=== PATIENT | male | born 1945 | race Hispanic/Latino ===

== ENCOUNTER 2019-08-28 14:06 | Emergency (ER) | payer MEDICARE, BC ==
[~2019-08-28] VITALS: Ht 177.8 cm; Wt 90.7 kg
[2019-08-28] MEDS ORDERED: ASPIRIN 81 MG CHEW TAB PO ONE (15:15)
--- NOTE | 2019-08-28 15:31 | Diagnostic Imaging Report ---
EXAMINATION: Head CT HISTORY: Slurred speech, possible stroke COMPARISON: None. TECHNIQUE: Helical axial images of the head were obtained. Reformatted coronal and sagittal images from the axial data. Dose modulation, iterative reconstruction, and/or weight based adjustment of the mA/kV was utilized to reduce the radiation dose to as low as reasonably achievable. Image quality: Motion/streaking artifact limits the evaluation of the skull base and posterior cranial fossa. FINDINGS: Parenchyma: 1. No abnormal densities. 2. No mass or hemorrhage. No CT evidence of acute territorial vascular insult. Extra-axial spaces:No abnormal density. No extra-axial fluid collections Brain volume: Mild generalized parenchymal volume loss. Ventricles: No hydrocephalus or displacement. Arteries: No density suggestive of thrombus. Dural sinuses: No abnormal density. Foramen magnum: No mass, Chiari malformation, or basilar invagination. Sella: No obvious mass. Paranasal/mastoid sinuses: Imaged portions unremarkable. Skull/Scalp: No lytic or blastic lesions. No fractures. IMPRESSION: No acute intracranial hemorrhage or CT evidence of large acute territorial cortical infarcts. Signed by: Dr. Tata Hills M.D. on 08/28/2019 3:27 PM
--- NOTE | 2019-08-28 15:44 | Diagnostic Imaging Report ---
EXAMINATION: CHEST SINGLE (PORTABLE) INDICATION: ^left facial droop COMPARISON: None FINDINGS: AP view TUBES and LINES: None. LUNGS: Lungs are well inflated. There is no evidence of pneumonia or pulmonary edema. PLEURA: No pleural effusion or pneumothorax. HEART AND MEDIASTINUM: The cardiomediastinal silhouette is unremarkable. BONES AND SOFT TISSUES: No acute osseous lesion. Soft tissues are unremarkable. UPPER ABDOMEN: No free air under the diaphragm. IMPRESSION: No acute thoracic abnormality. Signed by: Dr. Nathen Floyd MD on 08/28/2019 3:40 PM
[2019-08-28 15:56] LABS: BILIRUBIN,URINE NEGATIVE (NEGATIVE); CLARITY,URINE SL CLOUDY (CLEAR); COLOR,URINE YELLOW (YELLOW); KETONES,URINE NEGATIVE (NEGATIVE); LEUKOCYTE ESTERASE ,URINE NEGATIVE (NEGATIVE); NITRITE,URINE NEGATIVE (NEGATIVE); PROTEIN,URINE DIPSTICK NEGATIVE (NEGATIVE); URINE UROBILINOGEN 0.2 mg/dL (0.2 - 1)
[2019-08-28 16:06] LABS: INR 0.89; PROTHROMBIN TIME 12.6 seconds (11.9-14.5)
[2019-08-28 16:07] LABS: PARTIAL THROMBOPLASTIN TIME 28.9 seconds (23.8-35.5)
[2019-08-28 16:11] LABS: BACTERIA,URINE RARE /HPF; BASOPHILS # (AUTO) 0.1 (0.0-0.1); BASOPHILS % 0.6 % (0.0-1.0); EOSINOPHILS # (AUTO) 0.3 (0.0-0.4); EOSINOPHILS % 2.8 % (0.0-6.0); EPITHELIAL CELLS,URINE FEW /LPF; HEMATOCRIT 41.5 % (38.2-49.6); HEMOGLOBIN 14.2 g/dL (14.0-18.0); LYMPHOCYTES % 29.7 % (18.0-39.1); MEAN CORPUSCULAR HEMOGLOBIN 30.7 pg (28-32); MEAN CORPUSCULAR HGB CONC 34.2 g/dL (31-35); MEAN CORPUSCULAR VOLUME 89.8 fL (81-99); MONOCYTES # (AUTO) 0.9 (0.2-0.8); MONOCYTES % 8.7 % (4.4-11.3); NEUTROPHILS # (AUTO) 5.8 (2.1-6.9); NEUTROPHILS % 57.8 % (38.7-80.0); PLATELET COUNT 252 x10e3/uL (140-360); RBC,URINE 0-5 /HPF (0-5); RED BLOOD COUNT 4.62 x10e6/uL (4.3-5.7); RED CELL DISTRIBUTION WIDTH 12.6 % (11.7-14.4)
[2019-08-28 16:15] LABS: ALANINE AMINOTRANSFERASE 34 IU/L (0-55); ALBUMIN 3.7 g/dL (3.5-5.0); ALKALINE PHOSPHATASE 85 IU/L (40-150); ANION GAP 13.3 mmol/L (8-16); BLOOD UREA NITROGEN 24 mg/dL (7-26); BUN/CREATININE RATIO 21 (6-25); CALCIUM 10.3 mg/dL (8.4-10.2); CARBON DIOXIDE 24 mmol/L (22-29); CHLORIDE 103 mmol/L (98-107); CREATINE KINASE 101 IU/L (30-200); CREATININE, SERUM 1.15 mg/dL (0.72-1.25); EST GLOMERULAR FILTRATION RATE > 60 ML/MIN (60-); GLUCOSE 318 mg/dL (74-118); POTASSIUM 3.3 mmol/L (3.5-5.1); SODIUM 137 mmol/L (136-145)
--- NOTE | 2019-08-28 19:12 | Emergency Department Note ---
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, Family Member Arrival Mode: Car Water Meter Installer Required: No Onset (how long ago): hour(s) Radiation: Reports non-radiation Severity: mild Onset quality: sudden Timing of current episode: constant Progression: unchanged Chronicity: new Context: Denies recent illness Relieving factors: none Exacerbating factors: none Associated symptoms: Reports denies other symptoms Treatments prior to arrival: none Past Medical/Family History Physician Review I have reviewed the patient's past medical and family history. Any updates have been documented here. Past Medical History Recent Fever: No Clinical Suspicion of Infectio: No New/Unexplained Change in Ment: No Past Medical History: Hypertension, Diabetes, Hyperlipedemia Other Medical History: dementia Past Surgical History: None Social History Smoking Cessation: Former smoker Counseling Performed: Yes Alcohol Use: None Any Illegal Drug Use: No TB Exposure/Symptoms: No Physically hurt or threatened: No Family History Family history of heart diseas: No Other Any Pre-Existing Lines (PICC,: No Review of Systems Review of Systems Constitutional: Reports no symptoms EENTM: Reports no symptoms Cardiovascular: Reports no symptoms Respiratory: Reports no symptoms Gastrointestinal: Reports no symptoms Genitourinary: Reports no symptoms Musculoskeletal: Reports no symptoms Integumentary: Reports no symptoms Neurological: Reports as per HPI Psychological: Reports no symptoms Endocrine: Reports no symptoms Hematological/Lymphatic: Reports no symptoms Physical Exam Related Data Allergies: Coded Allergies: No Known Allergies (Unverified , 08/28/19) Triage Vital Signs Vital Signs Date Time Temp Pulse Resp B/P (MAP) Pulse Ox O2 Delivery O2 Flow Rate FiO2 08/28/19 15:07 98.8 100 18 136/86 96 Room Air Vital signs reviewed: Yes Physical Exam CONSTITUTIONAL Constitutional: Present well-developed, Present well-nourished HENT HENT: Present normocephalic, Present atraumatic, Present oropharynx clear/moist, Present nose normal HENT L/R: Present left TM normal, Present right TM normal, Present left canal normal, Present right canal normal, Present left ext ear normal, Present right ext ear normal EYES Eyes: Reports PERRL, Reports conjunctivae normal NECK Neck: Present ROM normal PULMONARY Pulmonary: Present effort normal, Present breath sounds normal CARDIOVASCULAR Cardiovascular: Present regular rhythm, Present heart sounds normal, Present capillary refill normal, Present normal rate GASTROINTESTINAL Abdominal: Present soft, Present nontender, Present bowel sounds normal GENITOURINARY Genitourinary: Present exam deferred SKIN Skin: Present warm, Present dry MUSCULOSKELETAL Musculoskeletal: Present ROM normal NEUROLOGICAL Neurological: Present alert, Present cranial nerve deficit (LEFT FACIAL DROOP WITH FOREHEAD INVOLVEMENT); Absent abnormal gait, Absent weakness PSYCHOLOGICAL Psychological: Present mood/affect normal, Present judgement normal Results Laboratory Result Diagram: 08/28/19 1519 08/28/19 1519 Laboratory Laboratory Tests Test 08/28/19 15:19 White Blood Count 10.07 x10e3/uL (4.8-10.8) Red Blood Count 4.62 x10e6/uL (4.3-5.7) Hemoglobin 14.2 g/dL (14.0-18.0) Hematocrit 41.5 % (38.2-49.6) Mean Corpuscular Volume 89.8 fL (81-99) Mean Corpuscular Hemoglobin 30.7 pg (28-32) Mean Corpuscular Hemoglobin Concent 34.2 g/dL (31-35) Red Cell Distribution Width 12.6 % (11.7-14.4) Platelet Count 252 x10e3/uL (140-360) Neutrophils (%) (Auto) 57.8 % (38.7-80.0) Lymphocytes (%) (Auto) 29.7 % (18.0-39.1) Monocytes (%) (Auto) 8.7 % (4.4-11.3) Eosinophils (%) (Auto) 2.8 % (0.0-6.0) Basophils (%) (Auto) 0.6 % (0.0-1.0) Neutrophils # (Auto) 5.8 (2.1-6.9) Lymphocytes # (Auto) 3.0 (1.0-3.2) Monocytes # (Auto) 0.9 (0.2-0.8) Eosinophils # (Auto) 0.3 (0.0-0.4) Basophils # (Auto) 0.1 (0.0-0.1) Absolute Immature Granulocyte (auto 0.04 x10e3/uL (0-0.1) Prothrombin Time 12.6 seconds (11.9-14.5) Prothromb Time International Ratio 0.89 Activated Partial Thromboplast Time 28.9 seconds (23.8-35.5) Urine Color Yellow (YELLOW) Urine Clarity Sl cloudy (CLEAR) Urine pH 5.5 (5 - 7) Urine Specific [place] 1.020 (1.010-1.025) Urine Protein Negative (NEGATIVE) Urine Glucose (UA) 2+ (NEGATIVE) Urine Ketones Negative (NEGATIVE) Urine Blood Trace (NEGATIVE) Urine Nitrite Negative (NEGATIVE) Urine Bilirubin Negative (NEGATIVE) Urine Urobilinogen 0.2 mg/dL (0.2 - 1) Urine Leukocyte Esterase Negative (NEGATIVE) Urine RBC 0-5 /HPF (0-5) Urine WBC None /HPF (0-5) Urine Epithelial Cells Few /LPF (NONE) Urine Bacteria Rare /HPF (NONE) Sodium Level 137 mmol/L (136-145) Potassium Level 3.3 mmol/L (3.5-5.1) Chloride Level 103 mmol/L (98-107) Carbon Dioxide Level 24 mmol/L (22-29) Anion Gap 13.3 mmol/L (8-16) Blood Urea Nitrogen 24 mg/dL (7-26) Creatinine 1.15 mg/dL (0.72-1.25) Estimat Glomerular Filtration Rate > 60 ML/MIN (60-) BUN/Creatinine Ratio 21 (6-25) Glucose Level 318 mg/dL (74-118) Calcium Level 10.3 mg/dL (8.4-10.2) Total Bilirubin 0.7 mg/dL (0.2-1.2) Aspartate Amino Transf (AST/SGOT) 27 IU/L (5-34) Alanine Aminotransferase (ALT/SGPT) 34 IU/L (0-55) Alkaline Phosphatase 85 IU/L (40-150) Creatine Kinase 101 IU/L (30-200) Creatine Kinase MB 1.80 ng/mL (0-5.0) Troponin I 0.012 ng/mL (0-0.300) Total Protein 7.4 g/dL (6.5-8.1) Albumin 3.7 g/dL (3.5-5.0) Globulin 3.7 g/dL (2.3-3.5) Albumin/Globulin Ratio 1.0 (0.8-2.0) Lab results reviewed: Yes Imaging Imaging results reviewed: Yes Impressions EXAMINATION: CHEST SINGLE (PORTABLE) INDICATION: ^left facial droop COMPARISON: None FINDINGS: AP view TUBES and LINES: None. LUNGS: Lungs are well inflated. There is no evidence of pneumonia or pulmonary edema. PLEURA: No pleural effusion or pneumothorax. HEART AND MEDIASTINUM: The cardiomediastinal silhouette is unremarkable. BONES AND SOFT TISSUES: No acute osseous lesion. Soft tissues are unremarkable. UPPER ABDOMEN: No free air under the diaphragm. IMPRESSION: No acute thoracic abnormality. Signed by: Dr. Nathen Floyd MD on 08/28/2019 3:40 PM EXAMINATION: Head CT HISTORY: Slurred speech, possible stroke COMPARISON: None. TECHNIQUE: Helical axial images of the head were obtained. Reformatted coronal and sagittal images from the axial data. Dose modulation, iterative reconstruction, and/or weight based adjustment of the mA/kV was utilized to reduce the radiation dose to as low as reasonably achievable. Image quality: Motion/streaking artifact limits the evaluation of the skull base and posterior cranial fossa. FINDINGS: Parenchyma: 1. No abnormal densities. 2. No mass or hemorrhage. No CT evidence of acute territorial vascular insult. Extra-axial spaces:No abnormal density. No extra-axial fluid collections Brain volume: Mild generalized parenchymal volume loss. Ventricles: No hydrocephalus or displacement. Arteries: No density suggestive of thrombus. Dural sinuses: No abnormal density. Foramen magnum: No mass, Chiari malformation, or basilar invagination. Sella: No obvious mass. Paranasal/mastoid sinuses: Imaged portions unremarkable. Skull/Scalp: No lytic or blastic lesions. No fractures. IMPRESSION: No acute intracranial hemorrhage or CT evidence of large acute territorial cortical infarcts. Signed by: Dr. Tata Hills M.D. on 08/28/2019 3:27 PM Procedures 12 Lead ECG Interpretation ECG Interpretation : ECG: ECG 1 Water Meter Installer: Interpreted by ED physician Date: Aug 28, 2019 Time: 15:09 Rhythm: sinus rhythm Conduction: incomplete RBBB (AND LAFB) ST segments normal: Yes T waves normal: Yes Clinical Impression: abnormal ECG Additional Comments PROLONGED QT Assessment & Plan Medical Decision Making MDM CBC, CHEM, CARDIACS, ECG, UA, CT BRAIN - LOOKS LIKE CASTAÑEDA'S PALSY BUT R/O CEREBRAL BLEED, MASS, CVA, ELECTROLYTE ABNL, STEMI/NSTEMI, UTI, RENAL INSUFF Reassessment Reassessment RE-EVALUATION - STILL ONLY HAS LEFT FACIAL DROOP AFFECTING FOREHEAD ALSO DC WITH STEROIDS, [place], F/U PCP/NEURO Assessment & Plan Final Impression: (1) Castañeda's palsy Depart Disposition: HOME, SELF-CARE Last Vital Signs Date Time Temp Pulse Resp B/P (MAP) Pulse Ox O2 Delivery O2 Flow Rate FiO2 08/28/19 15:07 98.8 100 18 136/86 96 Room Air Medications in the ED Aspirin 81 mg NOW ONCE PO Last administered on 08/28/19at 15:56; Admin Dose 81 MG; Start 08/28/19 at 15:15; Stop 08/28/19 at 15:22; Status DC ROCHELLE ADHIKARI MD Aug 28, 2019 19:12
== END 2019-08-28 20:30 | disposition home or self-care (01) ==
LOC: ER 14:06
DX: G51.0 Bell's palsy (principal); F03.90 Unspecified dementia, unspecified severity, without behavioral disturbance, psychotic disturbance, mood disturbance, and anxiety; I10 Essential (primary) hypertension; E11.9 Type 2 diabetes mellitus without complications; E78.5 Hyperlipidemia, unspecified
CPT/HCPCS: 36415; 70450; 71045; 80053; 81001; 82550; 82553; 84484; 85025; 85610; 85730; 87086; 93005; 99284

== ENCOUNTER 2019-09-14 11:58 | Emergency (ER) | payer MEDICARE, BC ==
[~2019-09-14] VITALS: Ht 177.8 cm; Wt 90.7 kg
[2019-09-14] MEDS ORDERED: SODIUM CHLORIDE 0.9% 1000ML 1,000 ML IV STA ×2 (12:23→15:00)
[2019-09-14 12:44] LABS: BASOPHILS % 0.2 % (0.0-1.0); EOSINOPHILS % 0.1 % (0.0-6.0); HEMATOCRIT 38.3 % (38.2-49.6); HEMOGLOBIN 13.7 g/dL (14.0-18.0); LYMPHOCYTES # (AUTO) 1.2 (1.0-3.2); LYMPHOCYTES % 6.9 % (18.0-39.1); MEAN CORPUSCULAR HEMOGLOBIN 30.6 pg (28-32); MEAN CORPUSCULAR HGB CONC 35.8 g/dL (31-35); MEAN CORPUSCULAR VOLUME 85.7 fL (81-99); MONOCYTES # (AUTO) 1.2 (0.2-0.8); MONOCYTES % 6.9 % (4.4-11.3); NEUTROPHILS # (AUTO) 14.4 (2.1-6.9); NEUTROPHILS % 85.3 % (38.7-80.0); PLATELET COUNT 300 x10e3/uL (140-360); RED BLOOD COUNT 4.47 x10e6/uL (4.3-5.7); RED CELL DISTRIBUTION WIDTH 12.4 % (11.7-14.4)
[2019-09-14 12:47] LABS: CLARITY,URINE CLEAR (CLEAR); COLOR,URINE YELLOW (YELLOW); LEUKOCYTE ESTERASE ,URINE NEGATIVE (NEGATIVE); NITRITE,URINE NEGATIVE (NEGATIVE)
[2019-09-14 12:48] LABS: BILIRUBIN,URINE NEGATIVE (NEGATIVE); KETONES,URINE 1+ (NEGATIVE); PROTEIN,URINE DIPSTICK NEGATIVE (NEGATIVE); URINE UROBILINOGEN 0.2 mg/dL (0.2 - 1)
[2019-09-14 12:49] LABS: INR 0.92; PROTHROMBIN TIME 12.8 seconds (11.9-14.5)
[2019-09-14 12:50] LABS: PARTIAL THROMBOPLASTIN TIME 32.6 seconds (23.8-35.5)
[2019-09-14 12:59] LABS: ALANINE AMINOTRANSFERASE 15 IU/L (0-55); ALBUMIN/GLOBULIN RATIO 0.8 (0.8-2.0); ALKALINE PHOSPHATASE 70 IU/L (40-150); ANION GAP 18.8 mmol/L (8-16); BLOOD UREA NITROGEN 25 mg/dL (7-26); BUN/CREATININE RATIO 21 (6-25); CALCIUM 9.7 mg/dL (8.4-10.2); CARBON DIOXIDE 21 mmol/L (22-29); CHLORIDE 86 mmol/L (98-107); CREATINE KINASE 124 IU/L (30-200); CREATININE, SERUM 1.18 mg/dL (0.72-1.25); EST GLOMERULAR FILTRATION RATE > 60 ML/MIN (60-); GLUCOSE 291 mg/dL (74-118); POTASSIUM 4.8 mmol/L (3.5-5.1); SODIUM 121 mmol/L (136-145)
[2019-09-14 13:08] LABS: BACTERIA,URINE FEW /HPF; EPITHELIAL CELLS,URINE FEW /LPF; WBC,URINE (MAN) 0-5 /HPF (0-5)
--- NOTE | 2019-09-14 14:32 | NUR ---
DR. TAFOYA CALLED AND POSTED THE READ ON THE HEAD CT
--- NOTE | 2019-09-14 14:37 | Diagnostic Imaging Report ---
CT BRAIN WO HISTORY: Altered mental status COMPARISON: Head CT 08/28/2019 Technique: Noncontrast axial scans were obtained from skull base to the vertex. Coronal and sagittal reconstructions obtained from the axial data. One or more of the following dose reduction techniques were used: Automated exposure control, adjustment of the mA and/or kV according to patient size, and/or utilization of iterative reconstruction technique. DISCUSSION: Scalp/Skull: Unremarkable. Brain sulci: Mildly prominent. Ventricles: Compensatory dilatation. Extra-axial spaces: New bilateral hemispheric fluid density subdural hygromas measure up to 0.6 cm in thickness on the right and 0.9 cm in thickness on the left. Mass effect is local without significant brain herniation. Trace acute subdural hemorrhage is also seen along the right posterior tentorium without significant mass effect. No other extra-axial masses or fluid collections. Carotid siphon calcifications are present. Parenchyma: Mild bilateral deep white matter hypodensity is likely chronic microvascular ischemic change. Otherwise, no masses, hemorrhage, or large vascular territory acute infarct. Dural sinuses: No abnormal densities. Sellar/Suprasellar region: Intact. Skull base: Intact. Incidental findings: Mild scattered paranasal sinus mucosal thickening. IMPRESSION: 1. Trace acute subdural hematoma along the right posterior tentorium without significant mass effect. This finding was discussed with Nelly Hancock RN, at 2:32 PM on 09/14/2019 (by Dr. Smart). 2. New bilateral hemispheric subdural hygromas, measuring up to 0.6 cm in thickness on the right and 0.9 cm on the left. Mass effect is local without significant brain herniation. 3. No other acute intracranial abnormalities. No other significant changes were compared to head CT dated 08/28/2019. 4. Mild supratentorial chronic microvascular ischemic change. Mild generalized cerebral volume loss. Signed by: Dr. Sarbjit Smart M.D. on 09/14/2019 2:34 PM
--- NOTE | 2019-09-14 14:45 | Diagnostic Imaging Report ---
CT CERVICAL SPINE WO HISTORY: Trauma COMPARISON: Concurrent head CT TECHNIQUE: CT of the cervical spine without contrast. Sagittal and coronal reformations were created. One or more of the following dose reduction techniques were used: Automated exposure control, adjustment of the mA and/or kV according to patient size, and/or utilization of iterative reconstruction technique. FINDINGS: Cervical lordosis is preserved. There is mild cervical levoscoliosis. No fractures, compression deformity, or destructive osseous lesions are seen. The craniocervical junction is intact. No gross spinal canal masses are seen. The paravertebral and paraspinal soft tissues are unremarkable. Degenerative changes: Mild multilevel spondylosis is associated with multilevel bilateral prominent facet arthrosis. There is associated minimal grade 1 anterolisthesis of C4 on C5. No gross osseous canal stenosis is seen. Multilevel moderate to severe bilateral foraminal stenoses are due to uncovertebral and facet arthrosis. Additional findings: Mild bilateral carotid bulb calcified plaque is present. IMPRESSION: 1. No acute osseous abnormalities. 2. Degenerative changes as described above. Signed by: Dr. Sarbjit Smart M.D. on 09/14/2019 2:42 PM
[2019-09-14] MEDS ORDERED: FOSPHENYTOIN 50 MG/ML VIAL IV STA (14:57)
[2019-09-14] MEDS ORDERED: CEFTRIAXONE SOD 1 GM/NS 50 ML 50 ML IV ONE (15:00)
--- NOTE | 2019-09-14 15:17 | Emergency Department Note ---
History of Present Illnes History of Present Illness Chief Complaint: General Medicine Complaints History of Present Illness This is a 73 year old male sent via EMS by family for AMS. They reported he had a fall 2 days ago and he was taken to [facility], unknown studies done but was sent home. Since then pt has been generally weak, not getting out of bed even to restroom, and no po intake. 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, Family Member Arrival Mode: Car Energy Control Officer Required: No Onset (how long ago): day(s) (2) Severity: moderate Onset quality: gradual Timing of current episode: constant Progression: worsening Chronicity: new Context: Reports trauma/injury Relieving factors: none Exacerbating factors: none Associated symptoms: Reports confusion, Reports loss of appetite Treatments prior to arrival: none Past Medical/Family History Physician Review I have reviewed the patient's past medical and family history. Any updates have been documented here. Past Medical History Recent Fever: No Clinical Suspicion of Infectio: Yes New/Unexplained Change in Ment: Yes Past Medical History: Hypertension, Diabetes, Hyperlipedemia Other Medical History: dementia Past Surgical History: None Social History Smoking Cessation: Never Smoker Counseling Performed: No Alcohol Use: None Any Illegal Drug Use: No Physically hurt or threatened: No Family History Family history of heart diseas: No Other Any Pre-Existing Lines (PICC,: No Review of Systems Review of Systems Constitutional: Reports no symptoms EENTM: Reports no symptoms Cardiovascular: Reports no symptoms Respiratory: Reports no symptoms Gastrointestinal: Reports no symptoms Genitourinary: Reports no symptoms Musculoskeletal: Reports no symptoms Integumentary: Reports no symptoms Neurological: Reports as per HPI Psychological: Reports no symptoms Endocrine: Reports no symptoms Hematological/Lymphatic: Reports no symptoms Physical Exam Related Data Allergies: Coded Allergies: No Known Allergies (Unverified , 08/28/19) Triage Vital Signs Vital Signs Date Time Temp Pulse Resp B/P (MAP) Pulse Ox O2 Delivery O2 Flow Rate FiO2 09/14/19 12:06 09/14/19 12:29 97.9 121 27 98 Room Air Vital signs reviewed: Yes Physical Exam CONSTITUTIONAL Constitutional: Present well-developed, Present well-nourished, Present ill appearing HENT HENT: Present normocephalic, Present atraumatic HENT L/R: Present left ext ear normal, Present right ext ear normal EYES Eyes: Reports other (pinpoint pupils bilateral) NECK Neck: Present ROM normal, Present supple PULMONARY Pulmonary: Present effort normal, Present other (decr BS's throughout ) CARDIOVASCULAR Cardiovascular: Present regular rhythm, Present tachycardia GASTROINTESTINAL Abdominal: Present soft, Present nontender GENITOURINARY Genitourinary: Present other (stage 2 sacral decubitus) SKIN Skin: Present warm MUSCULOSKELETAL Musculoskeletal: Present other (appears tender with ROM of both hips but no tenderness at hips) NEUROLOGICAL Neurological: Present other (somnolent but arousable to voice, oriented to name only) PSYCHOLOGICAL Results Laboratory Result Diagram: 09/14/19 1215 09/14/19 1215 Laboratory Laboratory Tests Test 09/14/19 12:30 09/14/19 12:25 09/14/19 12:15 09/14/19 12:11 Ammonia 46 UG/DL (31-123) White Blood Count 16.87 x10e3/uL (4.8-10.8) Red Blood Count 4.47 x10e6/uL (4.3-5.7) Hemoglobin 13.7 g/dL (14.0-18.0) Hematocrit 38.3 % (38.2-49.6) Mean Corpuscular Volume 85.7 fL (81-99) Mean Corpuscular Hemoglobin 30.6 pg (28-32) Mean Corpuscular Hemoglobin Concent 35.8 g/dL (31-35) Red Cell Distribution Width 12.4 % (11.7-14.4) Platelet Count 300 x10e3/uL (140-360) Neutrophils (%) (Auto) 85.3 % (38.7-80.0) Lymphocytes (%) (Auto) 6.9 % (18.0-39.1) Monocytes (%) (Auto) 6.9 % (4.4-11.3) Eosinophils (%) (Auto) 0.1 % (0.0-6.0) Basophils (%) (Auto) 0.2 % (0.0-1.0) Neutrophils # (Auto) 14.4 (2.1-6.9) Lymphocytes # (Auto) 1.2 (1.0-3.2) Monocytes # (Auto) 1.2 (0.2-0.8) Eosinophils # (Auto) 0.0 (0.0-0.4) Basophils # (Auto) 0.0 (0.0-0.1) Absolute Immature Granulocyte (auto 0.10 x10e3/uL (0-0.1) Prothrombin Time 12.8 seconds (11.9-14.5) Prothromb Time International Ratio 0.92 Activated Partial Thromboplast Time 32.6 seconds (23.8-35.5) Sodium Level 121 mmol/L (136-145) Potassium Level 4.8 mmol/L (3.5-5.1) Chloride Level 86 mmol/L (98-107) Carbon Dioxide Level 21 mmol/L (22-29) Anion Gap 18.8 mmol/L (8-16) Blood Urea Nitrogen 25 mg/dL (7-26) Creatinine 1.18 mg/dL (0.72-1.25) Estimat Glomerular Filtration Rate > 60 ML/MIN (60-) BUN/Creatinine Ratio 21 (6-25) Glucose Level 291 mg/dL (74-118) Lactic Acid Level 1.4 mmol/L (0.5-2.0) Calcium Level 9.7 mg/dL (8.4-10.2) Total Bilirubin 1.0 mg/dL (0.2-1.2) Aspartate Amino Transf (AST/SGOT) 21 IU/L (5-34) Alanine Aminotransferase (ALT/SGPT) 15 IU/L (0-55) Alkaline Phosphatase 70 IU/L (40-150) Creatine Kinase 124 IU/L (30-200) Creatine Kinase MB 2.10 ng/mL (0-5.0) Troponin I 0.010 ng/mL (0-0.300) B-Type Natriuretic Peptide 13.0 pg/mL (0-100) Total Protein 6.8 g/dL (6.5-8.1) Albumin 3.0 g/dL (3.5-5.0) Globulin 3.8 g/dL (2.3-3.5) Albumin/Globulin Ratio 0.8 (0.8-2.0) Urine Color Yellow (YELLOW) Urine Clarity Clear (CLEAR) Urine pH 6 (5 - 7) Urine Specific [place] 1.020 (1.010-1.025) Urine Protein Negative (NEGATIVE) Urine Glucose (UA) 2+ (NEGATIVE) Urine Ketones 1+ (NEGATIVE) Urine Blood Trace (NEGATIVE) Urine Nitrite Negative (NEGATIVE) Urine Bilirubin Negative (NEGATIVE) Urine Urobilinogen 0.2 mg/dL (0.2 - 1) Urine Leukocyte Esterase Negative (NEGATIVE) Urine RBC 6-10 /HPF (0-5) Urine WBC 0-5 /HPF (0-5) Urine Epithelial Cells Few /LPF (NONE) Urine Bacteria Few /HPF (NONE) Lab results reviewed: Yes Imaging Imaging results reviewed: Yes Impressions CT BRAIN WO HISTORY: Altered mental status COMPARISON: Head CT 08/28/2019 Technique: Noncontrast axial scans were obtained from skull base to the vertex. Coronal and sagittal reconstructions obtained from the axial data. One or more of the following dose reduction techniques were used: Automated exposure control, adjustment of the mA and/or kV according to patient size, and/or utilization of iterative reconstruction technique. DISCUSSION: Scalp/Skull: Unremarkable. Brain sulci: Mildly prominent. Ventricles: Compensatory dilatation. Extra-axial spaces: New bilateral hemispheric fluid density subdural hygromas measure up to 0.6 cm in thickness on the right and 0.9 cm in thickness on the left. Mass effect is local without significant brain herniation. Trace acute subdural hemorrhage is also seen along the right posterior tentorium without significant mass effect. No other extra-axial masses or fluid collections. Carotid siphon calcifications are present. Parenchyma: Mild bilateral deep white matter hypodensity is likely chronic microvascular ischemic change. Otherwise, no masses, hemorrhage, or large vascular territory acute infarct. Dural sinuses: No abnormal densities. Sellar/Suprasellar region: Intact. Skull base: Intact. Incidental findings: Mild scattered paranasal sinus mucosal thickening. IMPRESSION: 1. Trace acute subdural hematoma along the right posterior tentorium without significant mass effect. This finding was discussed with Nelly Hancock RN, at 2:32 PM on 09/14/2019 (by Dr. Smart). 2. New bilateral hemispheric subdural hygromas, measuring up to 0.6 cm in thickness on the right and 0.9 cm on the left. Mass effect is local without significant brain herniation. 3. No other acute intracranial abnormalities. No other significant changes were compared to head CT dated 08/28/2019. 4. Mild supratentorial chronic microvascular ischemic change. Mild generalized cerebral volume loss. Signed by: Dr. Sarbjit Smart M.D. on 09/14/2019 2:34 PM Procedures 12 Lead ECG Interpretation ECG Interpretation : ECG: ECG 1 Energy Control Officer: Interpreted by ED physician Date: Sep 14, 2019 Time: 12:03 Rhythm: sinus tachycardia Rate: tachycardia (125) QRS axis: left ST segments normal: Yes T waves normal: Yes Clinical Impression: abnormal ECG Critical Care Time Total Critical Care Time (min): 35 Critical care time exclusive o: separately billable procedures Critcal care necessary due to: trauma, other (AMS, SDH) Critcal care time spent by me: discussion w consultants, evaluation patient response to tx, examination of patient, obtaining hx from patient/surrogate, order/review laboratory studies, order/review radiographic studies, re- evaluation of patient condition, review of old charts Assessment & Plan Medical Decision Making MDM recent fall 2 days ago now AMS, GCS 13 - check CBC, CHEM, CARDIACS, PANCX'S, UA/CX, NH3, TRAUMA CT (HEAD, C-SPINE, CHEST/ABD/PELVIS) - R/O CEREBRAL BLEED, CERV FX, CHEST TRAUMA, PELVIC FX, ELECTROLYTE ABNL Reassessment Reassessment CT WITH SUBDURAL HEMATOME AND NEW BILAT SUBDURAL HYGROMAS - TRANSFER INITIATED TO TRAUMA CENTER [facility] SPOKE WITH DR THORNTON WHO ACCEPTED PT Assessment & Plan Final Impression: (1) SDH (subdural hematoma) (2) Altered mental status (3) Dehydration (4) Hyponatremia Depart Disposition: TRANS TO OTHER [facility] Last Vital Signs Date Time Temp Pulse Resp B/P (MAP) Pulse Ox O2 Delivery O2 Flow Rate FiO2 09/14/19 14:04 117 24 130/74 97 Room Air 09/14/19 12:29 97.9 Medications in the ED Sodium Chloride 1,000 ml @ 0 mls/hr Q0M STAT IV Last administered on 09/14/19at 12:32; Admin Dose 999 MLS/HR; Start 09/14/19 at 12:23; Stop 09/14/19 at 12:28; Status DC Ceftriaxone Sodium 50 ml @ 100 mls/hr ONCE ONCE IV ; Start 09/14/19 at 15:00; Stop 09/14/19 at 15:29; Status UNV Fosphenytoin Sodium 1,000 mg NOW STAT IV ; Start 09/14/19 at 14:57; Stop 09/14/19 at 14:58; Status UNV Sodium Chloride 1,000 ml @ 0 mls/hr Q0M STAT IV ; Start 09/14/19 at 15:00; Stop 09/14/19 at 15:01; Status UNV ROCHELLE ADHIKARI MD Sep 14, 2019 15:17
[2019-09-14] MEDS ORDERED: FOSPHENYTOIN 1,000 MG in SODIUM CHLORIDE 0.9% 50ML 50 ML IV ONE (15:30)
--- NOTE | 2019-09-14 15:46 | NUR ---
pt to be transferred to [facility] per md for subdural hematoma; pt has hx of dementia (a & o x 1)and more altered than usual per family and unable to consent to transfer himself; lance chen called for approval witnessed by both britton rn and compa rn at 1543 states she is ok with transfer to [facility]; md notified
--- NOTE | 2019-09-14 15:56 | Diagnostic Imaging Report ---
TECHNIQUE: CT of the chest, abdomen and pelvis without intravenous contrast. INDICATION: Fall, altered mental status. COMPARISON: Chest radiograph 08-28-2019. TECHNIQUE: Chest, Abdomen and pelvis were scanned utilizing a multidetector helical scanner from the thoracic inlet to the pubic symphysis without administration of IV or oral contrast. Coronal and sagittal reformations were obtained. Routine protocol was performed. Lack of intravenous contrast limits sensitivity for evaluation of vascular or visceral structures. COMPLICATIONS: None RADIATION DOSE: Total DLP: 840.3 mGy*cm Dose modulation, iterative reconstruction, and/or weight based adjustment of the mA/kV was utilized to reduce the radiation dose to as low as reasonably achievable. FINDINGS: Exam is somewhat limited by streak artifact from arms. LINES AND TUBES: None LUNGS AND AIRWAYS: The central airways are patent. Scattered bilateral pulmonary nodules, for example a 4 mm right upper lobe nodule on series 3, image 10, 3 mm right middle lobe nodule on image 27, 3 mm right lower lobe nodule on image 26, and 2 mm left lower lobe nodule on image 30. PLEURA: The pleural spaces are clear. HEART AND MEDIASTINUM: The thyroid gland is normal. No significant mediastinal, hilar or axillary lymphadenopathy is seen. No cardiomegaly or pericardial effusion. Multivessel coronary atherosclerosis. HEPATOBILIARY: There is a 2.2 cm hypodense lesion in the right hepatic lobe, with limited evaluation secondary to streak artifact, but likely representing a cyst. No biliary ductal dilatation. SPLEEN: No splenomegaly. PANCREAS: No focal masses or ductal dilatation. ADRENALS: No adrenal nodules. KIDNEYS/URETERS: No hydronephrosis, stones, or solid mass lesions. Nonspecific mild bilateral perinephric stranding. PELVIC ORGANS/BLADDER: Unremarkable. PERITONEUM / RETROPERITONEUM: No free air or fluid. LYMPH NODES: No lymphadenopathy. VESSELS: Mild atherosclerotic calcifications in the abdominal aorta and branch vessels. GI TRACT: No distention or wall thickening. Small hiatal hernia. Mild wall thickening within the esophagus diffusely. Moderate amount of stool in the colon. Retained contrast within the colon. Sigmoid colonic diverticulosis without evidence of diverticulitis. BONES AND SOFT TISSUES: No evidence of acute fracture or malalignment. There is a permeative appearance of the right humeral diaphysis, with limited evaluation secondary to streak artifact. Mild subcutaneous edema/trace hemorrhagic products in the right anterior abdominal wall. Small bilateral fat-containing inguinal hernias. IMPRESSION: Mild subcutaneous edema/trace hemorrhagic products in the right anterior abdominal wall. No other evidence for acute traumatic abnormality in the chest, abdomen, or pelvis. Permeative appearance of the right humerus, which may be artifactual, or represent malignancy or infectious process. Recommend follow-up right humeral radiographs, which may be performed non-emergently, for further evaluation. Bilateral pulmonary nodules, measuring up to 4 mm. In a low risk patient, no further follow-up is required. If the patient has a clinical risk factor for malignancy, an optional follow-up chest CT may be considered in 12 months. Small hiatal hernia with mild diffuse esophageal wall thickening, which may represent esophagitis in the setting of GERD. Recommend clinical correlation. Signed by: Dr. Jose Alfredo Acuna MD on 09/14/2019 3:53 PM
--- NOTE | 2019-09-14 16:21 | NUR ---
REPORT CALLED TO TRICIA SHARP RN FOR THIS PATIENT TO BE TX TO [facility]
--- NOTE | 2019-09-14 17:01 | NUR ---
[facility] HERE TO TX PT. CALL THE FAMILY [facility]- [phone]
== END 2019-09-14 17:10 | disposition short-term general hospital (02) ==
LOC: ER 12:41
DX: S06.5X0A Traumatic subdural hemorrhage without loss of consciousness, initial encounter (principal); I10 Essential (primary) hypertension; E11.9 Type 2 diabetes mellitus without complications; E78.5 Hyperlipidemia, unspecified; F03.90 Unspecified dementia, unspecified severity, without behavioral disturbance, psychotic disturbance, mood disturbance, and anxiety; W19.XXXA Unspecified fall, initial encounter; R40.2412 Glasgow coma scale score 13-15, at arrival to emergency department; E87.1 Hypo-osmolality and hyponatremia; E86.0 Dehydration; Z11.59 Encounter for screening for other viral diseases
CPT/HCPCS: 36415; 51700; 70450; 71250; 72125; 74176; 80053; 81001; 82140; 82550; 82553; 83605; 83880; 84484; 85025; 85610; 85730; 87040; 87086; 93005; 99284; J0696; J7030; Q2009; U0002

== ENCOUNTER 2019-10-21 14:48 | Emergency (ER) | payer MEDICARE, BC, OTHER ==
[~2019-10-21] VITALS: Ht 177.8 cm; Wt 90.7 kg
[2019-10-21 15:25] LABS: BASOPHILS # (AUTO) 0.1 (0.0-0.1); BASOPHILS % 0.3 % (0.0-1.0); EOSINOPHILS % 0.2 % (0.0-6.0); HEMOGLOBIN 12.9 g/dL (14.0-18.0); LYMPHOCYTES % 5.8 % (18.0-39.1); MEAN CORPUSCULAR HEMOGLOBIN 30.6 pg (28-32); MEAN CORPUSCULAR HGB CONC 33.1 g/dL (31-35); MEAN CORPUSCULAR VOLUME 92.6 fL (81-99); MONOCYTES # (AUTO) 1.3 (0.2-0.8); MONOCYTES % 7.3 % (4.4-11.3); NEUTROPHILS % 85.4 % (38.7-80.0); PLATELET COUNT 275 x10e3/uL (140-360); RED BLOOD COUNT 4.21 x10e6/uL (4.3-5.7); RED CELL DISTRIBUTION WIDTH 13.9 % (11.7-14.4)
[2019-10-21 15:35] LABS: PARTIAL THROMBOPLASTIN TIME 43.9 seconds (23.8-35.5)
[2019-10-21 15:40] LABS: INR 1.03
[2019-10-21 15:43] LABS: AMORPHOUS SEDIMENT,URINE MODERATE (FEW); BACTERIA,URINE FEW /HPF; BILIRUBIN,URINE NEGATIVE (NEGATIVE); CLARITY,URINE SL CLOUDY (CLEAR); COLOR,URINE YELLOW (YELLOW); KETONES,URINE 2+ (NEGATIVE); LEUKOCYTE ESTERASE ,URINE NEGATIVE (NEGATIVE); NITRITE,URINE NEGATIVE (NEGATIVE); PROTEIN,URINE DIPSTICK NEGATIVE (NEGATIVE); RBC,URINE 0-5 /HPF (0-5); URINE UROBILINOGEN 0.2 mg/dL (0.2 - 1)
--- OUTSIDE RECORDS SUMMARY | 2019-10-21 15:44 | XMS REPORT | Continuity of Care Document ---
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 Name Role Phone [employer] Unavailable Un available Problems Problem Status Onset Date Classification Date Reported Comments Source SUBDURAL HEMATOMA Active 09/14/2019 [facility] BILATERAL CHRONIC INTRACRANIAL SUBDURAL Active 09/14/2019 [facility] BILATERAL CHRONIC INTRACRANIAL Active 09/14/2019 [facility] SDH Active 0 09/14/2019 [facility] EPISTAXIS Active 08/13/2011 [facility] Contusion - lesion (morphologic abnormality) Active Problem 07/27/2014 [facility] Edema (morphologic abnormality) Active Problem 08/2014 [facility] [place] Bruising Active Problem 08/21/2011 [facility] Diabetes mellitus Active Problem 08/21/2011 [facility] Discomfort Active Problem 08/21/2011 [facility] Edema Active Problem 08/21/2011 [facility] HTN - Hypertension Active Problem 08/21/2011 [facility] Minor surgery done Active Problem 08/21/2011 [facility] Nose bleed Active Problem 08/21/2011 [facility] Pain Active Problem 08/21/2011 [facility] Weakness Active Problem 08/21/2011 [facility] Traumatic subdural hemorrhage without lo ss of consciousness, initial encounter 10/10/2019 [facility] Chronic intracranial subdural hematoma (disorder) Active Problem 10/10/2019 [facility] Diabetes mellitus (disorder) A ctive Problem [facility], [facility], [facility] [place] Discomfort (finding) Active Problem 10/10/2019 [facility], [facility], [facility] [place] 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 Problem 10/10/2019 [facility] Hypertensive disorder, systemic arterial (disorder) Active Problem 10/10/2019 [facility], [facility], [facility] [place] Minor surgery done (finding) A ctive Problem [facility], [facility], [facility] [place] Epistaxis (disorder) Active Problem 10/10/2019 [facility], [facility], [facility] [place] Pain (finding) Active Problem 10/10/2019 [facility], [facility], [facility] [place] Asthenia (finding) Active Problem 10/10/2019 [facility], [facility], [facility] [place] EPISTAXIS Active [facility] NONTRAUMATIC CHRONIC SUBDURAL HEMORRHAGE Active [facility] TRAUM SUBDR HEM W/O LOSS OF CONSCIOUSNES Active [facility] Medications Medication Details Route Status Patient Instructions Ordering Provider Order Date Source melatonin 3 mg oral tablet 6 m g = 2 tab, PO, Bedtime, # 60 tab, 0 Refill(s), Pharmacy: [facility] [place] [address], 170.18, cm, 09/19/19 13:07:00 CDT, Height, 83.636, kg, 09/19/19 13:07:00 CDT, Weight Active 10/07/2019 [facility] metoprolol tartrate 25 mg oral tablet 25 mg = 1 tab, PO, BID, # 60 tab, 2 Refill(s), Pharmacy: [place] [address], 170.18, cm, 09/19/19 13:07:00 CDT, Height, 83.636, kg, 09/19/19 13:07:00 CDT, Weight Active 10/07/2019 [facility] sennosides, PENITENTIARY 8.6 MG Oral Tablet 17.2 mg = 2 tab, PO, Daily, # 60 tab, 2 Refill(s), Pharmacy: [place] [address], 170.18, cm, 09/19/19 13:07:00 CDT, Height, 83.636, kg, 09/19/19 13:07:00 CDT, Weight Active 10/07/2019 [facility] Docusate Sodium 100 MG Oral Capsule 100 mg = 1 cap, PO, BID, # 60 cap, 2 Refill(s), Pharmacy: [place] [address], 170.18, cm, 09/19/19 13:07:00 CDT, Height, 83.636, kg, 09/19/19 13:07:00 CDT, Weight Active 10/07/2019 [facility] Diclofenac Sodium 0.01 MG/MG Topical Gel [Voltaren] 2 gm, TOP, QID, Apply to neck and upper shoulders., # 100 gm, 2 Refill(s), Pharmacy: [facility] [place] [address], 170.18, cm, 09/19/19 13:07:00 CDT, Height, 83.636, kg, 09/19/19 13:07:00 CDT, Weight Active 10/07/2019 [facility] Metformin hydrochloride 1000 MG Oral Tablet 1,000 mg = 1 tab, PO, BID-Meals, # 60 tab, 2 Refill(s), Pharmacy: [place] [address], 170.18, cm, 09/19/19 13:07:00 CDT, Height, 83.636, kg, 09/19/19 13:07:00 CDT, Weight Active 10/07/2019 [facility] methylphenidate 10 mg oral tablet 10 mg = 1 tab, PO, BID-08-31, # 60 tab, 0 Refill(s), Pharmacy: [place] [address], 170.18, cm, 09/19/19 13:07:00 CDT, Height, 83.636, kg, 09/19/19 13:07:00 CDT, Weight Active 10/07/2019 [facility] Mirtazapine 15 MG Oral Tablet 7.5 mg = 0.5 tab, PO, Bedtime, # 15 tab, 2 Refill(s), Pharmacy: [place] [address], 170.18, cm, 09/19/19 13:07:00 CDT, Height, 83.636, kg, 09/19/19 13:07:00 CDT, Weight Active 10/07/2019 [facility] POLYETHYLENE GLYCOL 3350 142 MG/ML Oral Solution 17 gm, PO, Daily, # 527 gm, 2 Refill(s), Pharmacy: [place] [address], 170.18, cm, 09/19/19 13:07:00 CDT, Height, 83.636, kg, 09/19/19 13:07:00 CDT, Weight Active 10/07/2019 [facility] 3 ML Insulin Glargine 100 UNT/ML Prefill ed Syringe [Lantus] 18 unit, SUB-Q, Bedtime, # 2 ea, 2 Refil l(s), Pharmacy: [place] [address], Dispense 2 flex pens and appropriate needles., 170.18, cm, 09/19/19 13:07:00 CDT, Height, 83.636, kg, 09/19/19 13:07:00 CDT, Weight Active 10/07/2019 [facility] Insulin Pen [place] Misc/Other See Instructions, Dispense 1 needle daily for Lantus Solostar pen., # 30 pen needle, 0 Refill(s), Pharmacy: [place] [address], 170.18, cm, 09/19/19 13:07:00 CDT, Height, 83.636, kg, 09/19/19 13:07:00 CDT, Weight Active 10/07/2019 [facility] lisinopril 2.5 mg oral tablet 2.5 mg = 1 tab, PO, Bedtime, # 30 tab, 2 Refill(s), Pharmacy: [place] [address], 170.18, cm, 09/19/19 13:07:00 CDT, Height, 83.636, kg, 09/19/19 13:07:00 CDT, Weight Active 10/07/2019 [facility] sitaGLIPtin 50 mg oral tablet 50 mg = 1 tab, PO, Daily, # 30 tab, 2 Refill(s), Pharmacy: [place] [address], 170.18, cm, 09/19/19 13:07:00 CDT, Height, 83.636, kg, 09/19/19 13:07:00 CDT, Weight Active 10/07/2019 [facility] metoprolol tartrate Notes: (Sa me as: Lopressor) No Longer Active 10/07/2019 [facility] Januvia Notes: Same as Januvia No Longer Active 10/06/2019 [facility] metoprolol tartrate Notes: (Sa me as: Lopressor) No Longer Active 10/04/2019 [facility] Lisinopril Notes: (Same as: Pr inivil, Zestril) No Longer Active 10/04/2019 [facility] Fleet Enema 12 years, Pediatr ic Dosing, 0 Inactive 10/03/2019 [facility] Insulin Glargine 100 UNT/ML Injectable Solution Notes: Same as Lantus Solostar PEN Do not hold insulin without contacting prescriber "single patient use only" WASTE: F/P - Black; E - Municipal Trash Bin Stable for 28 days at room temperature. Expires in days from Date Do not refrigerate No Longer Active 10/03/2019 [facility] modafinil Notes: (Same as:Prov igil) No Longer Active 10/02/2019 [facility] gabapentin 100 MG Oral Capsule 2 cap, Route: PO, Bedtime, Dosing Weight 83.636, kg, Start date: 10/01/19 21:00:00 CDT, Duration: 30 day, Stop date: 10/30/19 21:00:00 CDT No Longer Active 10/02/2019 [facility] Insulin Glargine 100 UNT/ML Injectable Solution 15 unit, 0.15 mL, Route: SUB-Q, Drug form: INJ, Bedtime, Dosing Weight 91.1, kg, Start date: 10/01/19 21:00:00 CDT, Duration: 30 day, Stop date: 10/30/19 21:00:00 CDT, 0 No Longer Active 10/02/2019 [facility] Miralax Notes: Dissolve in 8 o z of water or juice. (Same as: Miralax) No Longer Active 10/01/2019 [facility] gabapentin 300 MG Oral Capsule Notes: (Same as: Neurontin) No Longer Active 10/01/2019 [facility] Januvia Notes: Same as Januvia No Longer Active 09/30/2019 [facility] Insulin Glargine 100 UNT/ML Injectable Solution Notes: Same as Lantus Solostar PEN Do not hold insulin without contacting prescriber "single patient use only" WASTE: F/P - Black; E - Municipal Trash Bin Stable for 28 days at room temperature. Expires in days from Date Do not refrigerate No Longer Active 09/30/2019 [facility] Insulin Glargine 100 UNT/ML Injectable Solution Notes: Same as Lantus Solostar PEN Do not hold insulin without contacting prescriber "single patient use only" WASTE: F/P - Black; E - Municipal Trash Bin Stable for 28 days at room temperature. Expires in days from Date Do not refrigerate No Longer Active 09/28/2019 [facility] Metformin hydrochloride 1000 MG Oral Tablet Notes: (Same as: Glucophage) Take with meal No Longer Active 09/27/2019 [facility] Diclofenac Sodium 0.01 MG/MG Topical Gel [Voltaren] Notes: Same as: Voltaren Gel N o Longer Active 09/27/2019 [facility] Ritalin Notes: (Same as :Rital in) No Longer Active 09/27/2019 [facility] Mirtazapine Notes: (Same as:Re quinton) No Longer Active 09/27/2019 [facility] Artificial Tears Notes: (Same as: Refresh Plus) No Longer Active 09/26/2019 [facility] potassium chloride 20 mEq oral tablet, e xtended release (KCL) 40 mEq, 2 tab, Route: PO, Drug form: ERT AB, Daily, Dosing Weight 83.636, kg, Start date: 09/26/19 8:30:00 CDT, Duration: 3 day, Stop date: 09/28/19 8:30:00 CDT No Longer Active 09/26/2019 [facility] Metformin hydrochloride 500 MG Oral Tablet Notes: (Same as: Glucophage) Take with meal No Longer Active 09/26/2019 [facility] Mag-Ox 400 Notes: (Same as: Ma g-Ox 400) Magnesium oxide [id number] elemental magnesium Dose=____mg magnesium oxide (___mg elemental magnesium) No Longer Active 09/26/2019 [facility] Ritalin Notes: (Same as:Ritali n) No Longer Active 09/25/2019 [facility] Potassium Chloride 1.33 MEQ/ML Oral Solution Notes: (Same as: Potassium Chloride) Inactive 09/25/2019 [facility] Lidocaine 0.05 MG/MG Transdermal Patch Notes: Apply only once for up to 12 hours in a 24-hour period (12 hours on and 12 hours off). (Same as: Lidoderm) "Remove old patch before application of new patch" No Longer Active 09/24/2019 [facility] Mineral Oil Enema Notes: (Same as:Mineral Oil, Light) Inactive 09/23/2019 [facility] Enema 12 years, Pediatr ic Dosing Inactive 09/23/2019 [facility] Insulin Lispro Notes: (Same as : Humalog) Roll in palms of hands gently; Do not shake vigorously. WASTE: F/P - Black; E - Municipal Trash Bin Stable for 28 days at room temperature. Expires in days from Date No Longer Active 09/23/2019 [facility] metoprolol tartrate Notes: (Sa me as: Lopressor) No Longer Active 09/23/2019 [facility] Insulin Glargine 100 UNT/ML Injectable Solution Notes: Same as Lantus Solostar PEN Do not hold insulin without contacting prescriber "single patient use only" WASTE: F/P - Black; E - Municipal Trash Bin Stable for 28 days at room temperature. Expires in days from Date Do not refrigerate No Longer Active 09/21/2019 [facility] quetiapine Notes: (Same as: SE ROquel) No Longer Active 09/21/2019 [facility] metoprolol tartrate Notes: ( me as: Lopressor) No Longer Active 09/21/2019 [facility] sennosides, PENITENTIARY Notes: (Same a s: Senokot) No Longer Active 09/20/2019 [facility] Insulin Glargine 100 UNT/ML Injectable Solution Notes: Same as Lantus Solostar PEN Do not hold insulin without contacting prescriber "single patient use only" WASTE: F/P - Black; E - Municipal Trash Bin Stable for 28 days at room temperature. Expires in days from Date Do not refrigerate Inactive 09/20/2019 [facility] Ketoconazole 20 MG/ML Topical Cream 1 appl, Route: TOP, BID, Drug form: CRM, Start date: 09/19/19 21:00:00 CDT, Duration: 30 day, Stop date: 10/19/19 8:30:00 CDT Inactive 09/20/2019 [facility] Melatonin Notes: (Same as: Elvie atonin) No Longer Active 09/20/2019 [facility] metoprolol tartrate Notes: ( me as: Lopressor) No Longer Active 09/20/2019 [facility] Docusate Notes: (Same as: Cola ce) (Do Not Crush) No Longer Active 09/20/2019 [facility] Lisinopril Notes: (Same as: Pr inivil, Zestril) No Longer Active 09/20/2019 [facility] quetiapine Notes: (Same as: ROquel) No Longer Active 09/20/2019 [facility] Tylenol Notes: Do not exceed 4 gm/day. (Same as: Tylenol) No Longer Active 09/20/2019 [facility] Ergocalciferol 20740 UNT Oral Capsule Notes: (Same as: Vitamin D) "Do Not Crush" No Longer Active 09/19/2019 [facility] Insulin Lispro Notes: (Same as : Humalog) Roll in palms of hands gently; Do not shake vigorously. WASTE: F/P - Black; E - Municipal Trash Bin Stable for 28 days at room temperature. Expires in days from Date No Longer Active 09/19/2019 [facility] heparin Notes: porcine heparin No Longer Active 09/19/2019 [facility] quetiapine Notes: (Same as: ROquel) No Longer Active 09/19/2019 [facility] tizanidine 4 mg, Route: PO, Dr ug form: TAB, TID, Dosing Weight 91.1, kg, Start date: 09/19/19 13:17:00 CDT, Duration: 30 day, Stop date: 10/19/19 13:00:00 CDT Inactiv e 09/19/2019 [facility] Milk of Magnesia Notes: (Same as: Milk of Magnesia, MOM) No Longer Active 09/19/2019 [facility] Bisacodyl Notes: (Same As: Dul colax, Bisco-Lax) No Longer Active 09/19/2019 [facility] Saline Flush 0.9% Notes: (Same as: BD Posiflush) No Longer Active 09/19/2019 [facility] Insulin Lispro Notes: (Same as : Humalog) Roll in palms of hands gently; Do not shake vigorously. WASTE: F/P - Black; E - Municipal Trash Bin Stable for 28 days at room temperature. Expires in days from Date No Longer Active 09/19/2019 [facility] Dextrose 50% Syringe (D50W) 12 .5 gm, 25 mL, Route: IVP, Drug Form: INJ, Dosing Weight 83.636, kg, PRN, PRN Blood Glucose Results, Start date: 09/19/19 13:14:00 CDT, Duration: 30 day, Stop date: 10/19/19 13:13:00 CDT, 0 No Longer Active 09/19/2019 [facility] Glucagon 1 mg, Route: IM, Drug form: PDR/INJ, PRN, Dosing Weight 83.636, kg, PRN Blood Glucose Results, Start date: 09/19/19 13:14:00 CDT, Duration: 30 day, Stop date: 10/19/19 13:13:00 CDT, 0 No Longer Active 09/19/2019 [facility] Midazolam Notes: (Same as:Vers ed) No Longer Active 09/19/2019 [facility] Levetiracetam Notes: Same as K eppra Mix with 100 mL NS, LR or D5W MEDICATION WASTE Product Size: 500 mg Product Wasted: ___ mg No Longer Active 09/19/2019 [facility] NS (Bolus) IV 1,000 mL, 500 ml /hr, Infuse Over: 2 hr, Route: IV, 1,000, Drug form: INJ, ONCE, Priority: STAT, Dosing Weight 91.1 kg, Start date: 09/15/19 21:34:00 CDT, Stop date: 09/15/19 21:34:00 CDT, 0 Inactive 09/16/2019 [facility] Serogiselal Notes: (Same as: CARLINE chavira) Active 09/16/2019 [facility] Melatonin Notes: (Same as: Elvie ramirez) Active 09/16/2019 [facility] Zosyn Notes: (Same as: Zosyn) Dosing based on Piperacillin component MEDICATION WASTE Product Size: 3375 mg Product Wasted: ___ mg Active 09/16/2019 [facility] Sodium Chloride 0.9% (titrate) 1,000 mL 1,000 mL, Rate: 100 ml/hr, Infuse over: 10 hr, Dosing Weight 91.1, kg, Route: IV, Total Volume: 1,000, Start Date: 09/15/19 18:02:00 CDT, Duration: 30 day, Stop date: 10/15/19 18:01:00 CDT, Replace Every: 10 hr, 0 Active 09/15/2019 [facility] nter Seroquel Notes: (Same as: SERO quel) Active 09/15/2019 [facility] Hydralazine Notes: (Same as: A presoline) Push over 5 minutes Active 09/15/2019 [facility] Labetalol 10 mg, 2 mL, Route: IVP, Drug form: INJ, Q1H, Dosing Weight 90.909, kg, PRN Hypertension, Start date: 09/15/19 12:19:00 CDT, Duration: 30 day, Stop date: 10/15/19 12:18:00 CDT, 0 Active 09/15/2019 [facility] Zofran 4 mg, Route: IVP, Drug form: INJ, Q8H, Dosing Weight 90.909, kg, PRN Nausea, Start date: 09/15/19 12:19:00 CDT, Duration: 30 day, Stop date: 10/15/19 12:18:00 CDT Inactive 09/15/2019 [facility] Tylenol Notes: Do not exceed 4 gm/day. (Same as: Tylenol) Active 09/15/2019 [facility] Potassium Chloride 20 mEq, Rou te: IVPB, PRN, Dosing Weight 90.909, kg, PRN Abnormal Lab Result, Via central line, Start date: 09/15/19 12:17:00 CDT, Duration: 30 day, Stop date: 10/15/19 12:16:00 CDT, FOR ICU USE ONLY Inactive 09/15/2019 [facility] sodium phosphate 15 mmol, Rout e: IVPB, PRN, Dosing Weight 90.909, kg, PRN Abnormal Lab Result, Start date: 09/15/19 12:17:00 CDT, Duration: 30 day, Stop date: 10/15/19 12:16:00 CDT, FOR ICU USE ONLY Inactive 09/15/2019 [facility] potassium phosphate 15 mmol, R oute: IVPB, PRN, Dosing Weight 90.909, kg, PRN Abnormal Lab Result, Start date: 09/15/19 12:17:00 CDT, Duration: 30 day, Stop date: 10/15/19 12:16:00 CDT, FOR ICU USE ONLY Inactive 09/15/2019 [facility] potassium phosphate-sodium phosphate 250 mg-280 mg-160 mg oral powder for reconstitution 2 pkt, Route: PO, Dosing Weight 90.909, kg, PRN, PRN Abnormal Lab Result, FOR ICU USE ONLY, Start date: 09/15/19 12:17:00 CDT, Duration: 30 day, Stop date: 10/15/19 12:16:00 CDT Inactive 09/15/2019 [facility] Magnesium Sulfate 2 gm, Route: IVPB, PRN, Dosing Weight 90.909, kg, PRN Abnormal Lab Result, Start date: 09/15/19 12:17:00 CDT, Duration: 30 day, Stop date: 10/15/19 12:16:00 CDT, FOR ICU USE ONLY Inactive 09/15/2019 [facility] Magnesium Oxide 800 mg, Route: PO, PRN, Dosing Weight 90.909, kg, PRN Abnormal Lab Result, FOR ICU USE ONLY, Start date: 09/15/19 12:17:00 CDT, Duration: 30 day, Stop date: 10/15/19 12:16:00 CDT Inactive 09/15/2019 [facility] Calcium Gluconate 1 gm, Route: IVPB, PRN, Dosing Weight 90.909, kg, PRN Abnormal Lab Result, Start date: 09/15/19 12:17:00 CDT, Duration: 30 day, Stop date: 10/15/19 12:16:00 CDT, FOR ICU USE ONLY Inactive 09/15/2019 [facility] Calcium Carbonate 500 MG Chewable Tablet 500 mg, Route: PO, PRN, Dosing Weight 90.909, kg, PRN Abnormal Lab Result, FOR ICU USE ONLY, Start date: 09/15/19 12:17:00 CDT, Duration: 30 day, Stop date: 10/15/19 12:16:00 CDT Inactive 09/15/2019 [facility] Dextrose 50% Syringe (D50W) 25 mL, Route: IVP, Dosing Weight 90.909, kg, PRN, PRN Blood Glucose Results, Start date: 09/15/19 12:16:00 CDT, Duration: 30 day, Stop date: 10/15/19 12:15:00 CDT Inactive 09/15/2019 [facility] Glucagon 1 mg, Route: IM, PRN, Dosing Weight 90.909, kg, PRN Blood Glucose Results, Start date: 09/15/19 12:16:00 CDT, Duration: 30 day, Stop date: 10/15/19 12:15:00 CDT Inactive 09/15/2019 [facility] nter Insulin regular 2 unit, Route: SUB-Q, Sliding Scale, Dosing Weight 90.909, kg, PRN Blood Glucose Results, Start date: 09/15/19 12:16:00 CDT, Duration: 30 day, Stop date: 10/15/19 12:15:00 CDT Inactive 09/15/2019 [facility] Levetiracetam Notes: (Same as: Keppra) No Longer Active 09/15/2019 [facility] Docusate Notes: (Same as: Cola ce) (Do Not Crush) Active 09/15/2019 [facility] sennosides, PENITENTIARY Notes: (Same a s: Senokot) Active 09/15/2019 [facility] Saline Flush 0.9% Notes: (Same as: BD Posiflush) Active 09/15/2019 [facility] Nystatin 100 UNT/MG Topical Powder Notes: (Same as:Mycostatin, Nilstat) For external use only. Active 09/15/2019 [facility] nter Acetaminophen Notes: Do not ex ceed 4 gm/day. (Same as: Tylenol) No Longer Active 09/15/2019 [facility] Ondansetron Notes: (Same as: Jacobo andre) MEDICATION WASTE Product Size: 4 mg Product Wasted: 0 mg Active 09/15/2019 [facility] nter Bisacodyl Notes: (Same As: Dul colax, Bisco-Lax) Active 09/15/2019 [facility] Saline Flush 0.9% Notes: (Same as: BD Posiflush) Active 09/15/2019 [facility] Potassium Chloride Notes: (Bradley e as: KCL) Infuse no faster than 10 mEq/hr if given peripherally. Active 09/15/2019 [facility] nter sodium phosphate Notes: Infuse over 4 hour. Do not infuse phosphorous concurrently in the same line as TPN or IVF that contains calcium. For double lumen central lines, phosphorous may be infused in a separate lumen from TPN. Activ e 09/15/2019 [facility] potassium phosphate Notes: (Sa me as: K Phosphate.) Do not infuse phosphorous concurrently in the same line as TPN or IVF that contains calcium. For double lumen central lines, phosphorous may be infused in a separate lumen from TPN. 1 mMol phoshate has 1.47 mEq potassium Infuse over 4 hours Active 09/15/2019 [facility] potassium phosphate-sodium phosphate 250 mg-280 mg-160 mg oral powder for reconstitution Notes: (Same as: Phos-NaK) Each 1.5 gm pkt has 250mg phosphorous. Mix w/2.5oz water and stir. Active 09/15/2019 [facility] Magnesium Sulfate Notes: WASTE : F/P - Sink; E - Municipal Trash Bin Active 09/15/2019 [facility] Magnesium Oxide Notes: (Same a s: Mag-Ox 400) Magnesium oxide [id number] elemental magnesium Dose=____mg magnesium oxide (___mg elemental magnesium) Active 09/15/2019 [facility] Calcium Gluconate Notes: WASTE : F/P - Sink; E - Municipal Trash Bin Active 09/15/2019 [facility] Calcium Carbonate 500 MG Chewable Tablet Notes: (Same As: Tums) Calcium Carbonate 500 mg = 200 mg elemental calcium Dose = mg calcium carbonate ( mg elemental calcium) Active 09/15/2019 [facility] nter Dextrose 50% Syringe (D50W) 12 .5 gm, 25 mL, Route: IVP, Drug Form: INJ, Dosing Weight 90.909, kg, PRN, PRN Blood Glucose Results, Start date: 09/14/19 20:29:00 CDT, Duration: 30 day, Stop date: 10/14/19 20:28:00 CDT, 0 Active 09/15/2019 [facility] Glucagon 1 mg, Route: IM, Drug form: PDR/INJ, PRN, Dosing Weight 90.909, kg, PRN Blood Glucose Results, Start date: 09/14/19 20:29:00 CDT, Duration: 30 day, Stop date: 10/14/19 20:28:00 CDT, 0 Active 09/15/2019 [facility] Insulin Lispro Notes: (Same as : Humalog) Roll in palms of hands gently; Do not shake vigorously. WASTE: F/P - Black; E - Municipal Trash Bin Stable for 28 days at room temperature. Expires in days from Date Active 09/15/2019 [facility] Acetaminophen Notes: Do not ex ceed 4 gm/day. (Same as: Tylenol) No Longer Active 09/15/2019 [facility] Acetaminophen 325 MG / Hydrocodone Brian trate 5 MG Oral Tablet Notes: (Same as: [place] 325/5) Do not ex ceed 4gm/day of acetaminophen. Inactive 09/15/2019 [facility] Ondansetron Notes: (Same as: Jacobo andre) MEDICATION WASTE Product Size: 4 mg Product Wasted: ___ mg Active 09/15/2019 [facility] Saline Flush 0.9% Notes: (Same as: BD Posiflush) Active 09/15/2019 [facility] Saline Flush 0.9% Notes: (Same as: BD Posiflush) Active 09/14/2019 [facility] Isolyte S PH-7.4 (Bolus) IV No diallo: (Same as: Isolyte S PH7.4, Normosol-R PH 7.4, Plasma-Lyte A ) Inactive 09/14/2019 [facility] nter cefepime Notes: (Same as: Brijesh calero) MEDICATION WASTE Product Size: 2000 mg Product Wasted: ___ mg Inactive 09/14/2019 [facility] Vancomycin 2001 mg: infuse ov er 2.5 hours Inactive 09/14/2019 [facility] Lactated Ringers Injection IV 1,000 mL 1,000 mL, Rate: 25 ml/hr, Infuse over: 40 hr, Route: IV, Dosing Weight 97.727 kg, Total Volume: 1,000, Start date: 08/17/11 14:13:00, Duration: 30 day, Stop date: 09/16/11 14:12:00 IV No Longer Active [place] 08/17/2011 [facility] Sodium Chloride 0.9% IV IV, 10 0 ml/hr, ONCALL, Start date: 08/16/11 16:00:00, Duration: 30, 1,000 ml IV No Longer Active [place] 08/16/2011 [facility] Patient's own med: [facility] menthol oral lozenge Patient's own med: [facility] menthol oral lozenge, 1, Drug form: MISC, Route: PO, 5X Day, 08/15/11 6:00:00, Duration: 30 day, Stop date: 09/13/11 22:00:00 PO No Longer Active [place] 08/15/2011 [facility] Menthol oral lozenge Route: PO, 5X Day, Start date: 08/15/11 6:00:00, Duration: 30 day, Stop date: 09/13/11 22:00:00 PO No Longer Active [place] 2011 [facility] morphine Sulfate 4 mg, 2 mL, R oute: IVP, Drug form: INJ, Q4H, PRN Pain, Start date: 08/15/11 1:54:00, Duration: 30 day, Stop date: 09/14/11 1:53:00 IVP No Longer Active [place] 08/15/2011 [facility] phenol topical 1.4% spray 2 sp ray, Route: PO, Q4H, Drug form: SPRY PRN Sore Throat, Start date: 08/14/11 18:21:00, Duration: 30 day, Stop date: 09/13/11 18:20:00 PO No Longer Active [place] 08/14/2011 [facility] Ancef 1 gm, Route: IVPB, ONCE, Start date: 08/14/11 11:22:00, Duration: 1 doses or times, Stop date: 08/14/11 11:22:00 IVPB No Longer Active [place] 2011 [facility] lisinopril 10 mg, 1 tab, Route : PO, Drug form: TAB, Daily, Start date: 08/14/11 9:00:00, Duration: 30 day, Stop date: 09/12/11 9:00:00 PO No Longer Active [place] 08/14/2011 [facility] Lopressor 5 mg, 5 mL, Route: I [employer], Drug form: INJ, Q6H, PRN Elevated BP, Start date: 08/14/11 7:52:00, Duration: 30 day, Stop date: 09/13/11 7:51:00, Systolic BP >140 Diastolic BP>100 Hold for HR < 60 IVP No Longer Active [facility] 2011 [facility] Afrin 0.05% nasal spray 2 spra y, Route: NASAL, Q12H, Drug form: SPRY, PRN Nasal Congestion, Start date: 08/14/11 4:08:00, Duration: 3 day, Stop date: 08/17/11 4:07:00 NASAL No Longer Active [facility] 08/14/2011 [facility] normal saline 0.9% IV 1,000 mL 1,000 mL, Rate: 90 ml/hr, Infuse over: 11.1 hr, Route: IV, Dosing Weight 97.727 kg, Total Volume: 1,000, Start date: 08/13/11 20:13:00, Duration: 30 day, Stop date: 09/12/11 20:12:00 IV No Longer Active [facility] NovoLog FlexPen 1 unit, 0.01 m L, Route: SUB-Q, Drug form: SOLN, Bedtime, PRN Blood Glucose Results, Start date: 08/13/11 19:57:00, Duration: 30 day, Stop date: 09/12/11 19:56:00 SUB-Q No Longer Active [facility] 08/14/2011 [facility] Dextrose 50% in Water IV 50 mL , Route: IVP, Start date: 08/13/11 19:57:00, Duration: 30 day, Stop date: 09/12/11 19:56:00, PRN Blood Glucose Results IVP No Longer Active [facility] 08/14/2011 [facility] glucagon 1 mg, Route: IM, Drug form: PDR/INJ, PRN, PRN Blood Glucose Results, Start date: 08/13/11 19:57:00, Duration: 30 day, Stop date: 09/12/11 19:56:00 IM No Longer Active [facility] 08/14/2011 [facility] Lopressor 5 mg, 5 mL, Route: I V, Drug form: INJ, ONCE, Start date: 08/13/11 18:45:00, Stop date: 08/13/11 18:45:00 IV No Longer Active [facility] 08/13/2011 [facility] glyBURIDE-metformin 5 mg-500 mg oral tablet 1 tab, Route: PO, Drug Form: TAB, BID-Meals, Start date: 08/13/11 17:00:00, Duration: 30 day, Stop date: 09/12/11 8:00:00 PO No Longer Active [facility] 08/13/2011 [facility] Glucophage 500 mg, 1 tab, Rout e: PO, Drug form: TAB, BID-Meals, Start date: 08/13/11 17:00:00, Duration: 30 day, Stop date: 09/12/11 8:00:00 PO No Longer Active [facility] 08/13/2011 [facility] DiaBeta 5 mg, 1 tab, Route: PO , Drug form: TAB, BID- Meals, Start date: 08/13/11 17:00:00, Duration: 30 day, Stop date: 09/12/11 8:00:00 PO No Longer Active [facility] 08/13/2011 [facility] glucagon 1 mg, Route: IM, Drug form: PDR/INJ, PRN, PRN Blood Glucose Results, Start date: 08/13/11 15:05:00, Duration: 30 day, Stop date: 09/12/11 15:04:00 IM No Longer Active [facility] 08/13/2011 [facility] Dextrose 50% Syringe 25 gm, 50 mL, Route: IVP, Drug Form: INJ, PRN, PRN Blood Glucose Results, Start date: 08/13/11 15:05:00, Duration: 30 day, Stop date: 09/12/11 15:04:00 IVP No Longer Active [facility] 08/13/2011 [facility] acetaminophen-hydrocodone 325 mg-5 mg oral tablet 2 tab, Route: PO, Drug Form: TAB, Q4H, PRN Pain Score 4-6, Start date: 08/13/11 14:28:00, Duration: 30 day, Stop date: 09/12/11 14:27:00 PO No Longer Active [facility] 08/13/2011 [facility] hydromorphone 0.5 mg, 0.5 mL, Route: IVP, Drug form: SOLN, Q5Min, PRN Pain Score 4-6, Start date: 08/13/11 14:28:00, Duration: 5 doses or times, Stop date: Limited # of times IVP No Longer Active [facility] 08/13/2011 [facility] ondansetron 4 mg, 2 mL, Route: IVP, Drug form: INJ, ONCE, PRN Nausea & Vomiting, Start date: 08/13/11 14:28:00 IVP No Longer Active [facility] 08/13/2011 [facility] flumazenil 0.2 mg, 2 mL, Route : IVP, Drug form: INJ, PRN, PRN Benzodiazepine Reversal, Initial dose, Start date: 08/13/11 14:28:00, Duration: 30 day, Stop date: 09/12/11 14:27:00 IVP No Longer Active [facility] 08/13/2011 [facility] naloxone 0.04 mg, 0.1 mL, Rout e: IVP, Drug form: INJ, Q2MIN, PRN Narcotic Reversal, Start date: 08/13/11 14:28:00, Duration: 8 doses or times, Stop date: Limited # of times IVP No Longer Active [facility] 08/13/2011 [facility] meperidine 12.5 mg, 0.25 mL, R oute: IVP, Drug form: INJ, Q30Min, PRN Other -See Comment, For shivering, Start date: 08/13/11 14:28:00, Duration: 2 doses or times, Stop date: Limited # of times IVP No Longer Active [facility] 08/13/2011 [facility] morphine Sulfate 2 mg, 1 mL, R oute: IVP, Drug form: INJ, Q5Min, PRN Pain Score 4-6, Start date: 08/13/11 14:28:00, Duration: 8 doses or times, Stop date: Limited # of times IVP No Longer Active A[facility] 08/13/2011 [facility] Unasyn 3 gm, 1 ea, Route: IVPB , Drug form: PDR/INJ, ABXQ6H, Start date: 08/13/11 14:00:00, Duration: 30 day, Stop date: 09/12/11 8:00:00 IVPB No Longer Active [facility] 08/13/2011 [facility] Tylenol 650 mg, 2 tab, Route: PO, Drug form: TAB, Q6H, PRN Fever, Start date: 08/13/11 13:48:00, Stop date: 09/12/11 13:47:00 PO No Longer Active [facility] 2011 [facility] Phenergan 25 mg, 1 mL, Route: IVP Central, Q6H, PRN Nausea & Vomiting, Start date: 08/13/11 13:47:00, Duration: 30 day, Stop date: 09/12/11 13:46:00 IVP Central No Longer Active [facility] 08/13/2011 [facility] morphine Sulfate 2 mg, 1 mL, R oute: IVP, Drug form: INJ, Q4H, PRN Pain, Start date: 08/13/11 13:47:00, Duration: 30 day, Stop date: 09/12/11 13:46:00 IVP No Longer Active [facility] 08/13/2011 [facility] Dextrose 5% with 0.45% NaCl IV 1,000 mL 1,000 mL, Rate: 125 ml/hr, Infuse over: 8 hr, Route: IV, Dosing Weight 97.727 kg, Total Volume: 1,000, Start date: 08/13/11 6:26:00, Duration: 30 day, Stop date: 09/12/11 6:25:00 IV No Longer Active [facility] 08/13/2011 [facility] Allergies, Adverse Reactions, Alerts Substance Category Reaction Severity Reaction type Status Date Reported Comments Source codeine Assertion Drug allergy Active [facility] Immunizations No Data Provided for This Section Results Order Name Results Value Reference Range Date Interpretation Comments Source CHEM PANEL Magnesium Lvl 1.8 1.8 - 2.4 10/02/2019 [facility] CHEM PANEL ALT 58 0 - 65 10/02/2019 [facility] CHEM PANEL Albumin Lvl 2.7 3.5 - 5.0 10/02/2019 [facility] CHEM PANEL Alk Phos 81 39 - 136 10/02/2019 [facility] CHEM PANEL Glucose Lvl 150 70 - 99 10/02/2019 [facility] CHEM PANEL BUN 15 7 - 22 10/02/2019 [facility] CHEM PANEL Creatinine Lvl 0.97 0.50 - 1.40 10/02/2019 [facility] CHEM PANEL Sodium Lvl 142 135 - 145 10/02/2019 [facility] CHEM PANEL Potassium Lvl 4.3 3.5 - 5.1 10/02/2019 [facility] CHEM PANEL Chloride Lvl 109 95 - 109 10/02/2019 [facility] CHEM PANEL CO2 26 24 - 32 10/02/2019 [facility] CHEM PANEL Calcium Lvl 9.2 8.5 - 10.5 10/02/2019 [facility] CHEM PANEL Bili Total 0.5 0.2 - 1.3 10/02/2019 [facility] CHEM PANEL Total Protein 6.5 6.4 - 8.4 10/02/2019 [facility] CHEM PANEL AST 30 0 - 37 10/02/2019 [facility] CHEM PANEL AGAP 11.3 10.0 - 20.0 10/02/2019 [facility] CHEM PANEL B/C Ratio 15 6 - 25 10/02/2019 [facility] CHEM PANEL Globulin 3.8 2.7 - 4.2 10/02/2019 [facility] CHEM PANEL A/G Ratio 0.7 0.7 - 1.6 10/02/2019 [facility] CHEM PANEL eGFR 77 10/02/2019 Result Comment: The eGFR is calculated using the CKD-EPI formula. In most young, healthy individuals the eGFR will be >90 mL/min/1.73m2. The eGFR declines with age. An eGFR of 60-89 may be normal in some populations, particularly the elderly, for whom the CKD-EPI formula has not been extensively validated. Use of the eGFR is not recommended in the following populations:

Individuals with unstable creatinine concentrations, including patients and those with serious co-morbid conditions.

Patients with extremes in muscle mass or diet.

The data above are obtained from the National Kidney Disease Education Program (NKDEP) which additionally recommends that when the eGFR is used in patients with extremes of body mass index for purposes of drug dosing, the eGFR should be multiplied by the estimated BMI. [facility] CHEM PANEL Phosphorus 3.0 2.5 - 4.5 10/02/2019 [facility] HEMATOLOGY WBC 5.8 3.7 - 10.4 10/02/2019 [facility] HEMATOLOGY RBC 4.02 4.70 - 6.10 10/02/2019 [facility] HEMATOLOGY Hgb 12.7 14.0 - 18.0 10/02/2019 [facility] HEMATOLOGY Hct 37.8 42.0 - 54.0 10/02/2019 [facility] HEMATOLOGY MCV 94.1 80.0 - 94.0 10/02/2019 [facility] HEMATOLOGY MCH 31.7 27.0 - 31.0 10/02/2019 [facility] HEMATOLOGY MCHC 33.7 32.0 - 36.0 10/02/2019 [facility] HEMATOLOGY RDW 15.6 11.5 - 14.5 10/02/2019 [facility] HEMATOLOGY Platelet 242 133 - 450 10/02/2019 [facility] HEMATOLOGY MPV 8.3 7.4 - 10.4 10/02/2019 [facility] HEMATOLOGY Segs 55.6 45.0 - 75.0 10/02/2019 [facility] HEMATOLOGY Lymphocytes 32.3 20.0 - 40.0 10/02/2019 [facility] HEMATOLOGY Monocytes 9.5 2.0 - 12.0 10/02/2019 [facility] HEMATOLOGY Eosinophils 1.9 0.0 - 4.0 10/02/2019 [facility] HEMATOLOGY Basophils 0.7 0.0 - 1.0 10/02/2019 [facility] HEMATOLOGY Neutrophils # 3.2 1.5 - 8.1 10/02/2019 [facility] HEMATOLOGY Lymphocytes # 1.9 1.0 - 5.5 10/02/2019 [facility] HEMATOLOGY Monocytes # 0.5 0.0 - 0.8 10/02/2019 [facility] HEMATOLOGY Eosinophils # 0.1 0.0 - 0.5 10/02/2019 [facility] CHEM PANEL ALT 61 0 - 65 10/01/2019 [facility] CHEM PANEL Albumin Lvl 2.5 3.5 - 5.0 10/01/2019 [facility] CHEM PANEL Alk Phos 84 39 - 136 10/01/2019 [facility] CHEM PANEL Glucose Lvl 196 70 - 99 10/01/2019 [facility] CHEM PANEL BUN 18 7 - 22 10/01/2019 [facility] CHEM PANEL Creatinine Lvl 1.28 0.50 - 1.40 10/01/2019 [facility] CHEM PANEL Sodium Lvl 140 135 - 145 10/01/2019 [facility] CHEM PANEL Potassium Lvl 4.3 3.5 - 5.1 10/01/2019 [facility] CHEM PANEL Chloride Lvl 106 95 - 109 10/01/2019 [facility] CHEM PANEL CO2 27 24 - 32 10/01/2019 [facility] CHEM PANEL Calcium Lvl 9.2 8.5 - 10.5 10/01/2019 [facility] CHEM PANEL Bili Total 0.5 0.2 - 1.3 10/01/2019 [facility] CHEM PANEL Total Protein 6.3 6.4 - 8.4 10/01/2019 [facility] CHEM PANEL AST 35 0 - 37 10/01/2019 [facility] CHEM PANEL AGAP 11.3 10.0 - 20.0 10/01/2019 [facility] CHEM PANEL B/C Ratio 14 6 - 25 10/01/2019 [facility] CHEM PANEL Globulin 3.8 2.7 - 4.2 10/01/2019 [facility] CHEM PANEL A/G Ratio 0.7 0.7 - 1.6 10/01/2019 [facility] CHEM PANEL eGFR 55 10/01/2019 Result Comment: The eGFR is calculated using the CKD-EPI formula. In most young, healthy individuals the eGFR will be >90 mL/min/1.73m2. The eGFR declines with age. An eGFR of 60-89 may be normal in some populations, particularly the elderly, for whom the CKD-EPI formula has not been extensively validated. Use of the eGFR is not recommended in the following populations:

Individuals with unstable creatinine concentrations, including patients and those with serious co-morbid conditions.

Patients with extremes in muscle mass or diet.

The data above are obtained from the National Kidney Disease Education Program (NKDEP) which additionally recommends that when the eGFR is used in patients with extremes of body mass index for purposes of drug dosing, the eGFR should be multiplied by the estimated BMI. [facility] HEMATOLOGY WBC 6.9 3.7 - 10.4 10/01/2019 [facility] HEMATOLOGY RBC 3.80 4.70 - 6.10 10/01/2019 [facility] HEMATOLOGY Hgb 12.1 14.0 - 18.0 10/01/2019 [facility] HEMATOLOGY Hct 35.4 42.0 - 54.0 10/01/2019 [facility] HEMATOLOGY MCV 93.2 80.0 - 94.0 10/01/2019 [facility] HEMATOLOGY MCH 31.9 27.0 - 31.0 10/01/2019 [facility] HEMATOLOGY MCHC 34.2 32.0 - 36.0 10/01/2019 [facility] HEMATOLOGY RDW 15.2 11.5 - 14.5 10/01/2019 [facility] HEMATOLOGY Platelet 250 133 - 450 10/01/2019 [facility] HEMATOLOGY MPV 7.6 7.4 - 10.4 10/01/2019 [facility] HEMATOLOGY Segs 60.7 45.0 - 75.0 10/01/2019 [facility] HEMATOLOGY Lymphocytes 25.5 20.0 - 40.0 10/01/2019 [facility] HEMATOLOGY Monocytes 11.8 2.0 - 12.0 10/01/2019 [facility] HEMATOLOGY Eosinophils 1.5 0.0 - 4.0 10/01/2019 [facility] HEMATOLOGY Basophils 0.5 0.0 - 1.0 10/01/2019 [facility] HEMATOLOGY Neutrophils # 4.2 1.5 - 8.1 10/01/2019 [facility] HEMATOLOGY Lymphocytes # 1.8 1.0 - 5.5 10/01/2019 [facility] HEMATOLOGY Monocytes # 0.8 0.0 - 0.8 10/01/2019 [facility] HEMATOLOGY Eosinophils # 0.1 0.0 - 0.5 10/01/2019 [facility] URINE AND STOOL UA Color Yellow *NA* (10/01/19 10:21 AM) Yellow 10/01/2019 [facility] URINE AND STOOL UA Turbidity Clear (10/01/19 10:21 AM) Clear 10/01/2019 [facility] URINE AND STOOL UA Spec Grav 1.020 <=1.030 10/01/2019 [facility] URINE AND STOOL UA pH 5.0 5.0 - 8.0 10/01/2019 [facility] URINE AND STOOL UA Protein Negative mg/dL Negative mg/dL 10/01/2019 [facility] URINE AND STOOL UA Glucose Negative mg/dL Negative mg/dL 10/01/2019 [facility] URINE AND STOOL UA Ketones Negative mg/dL Negative mg/dL 10/01/2019 [facility] URINE AND STOOL UA Bili Negative *NA* (10/01/19 10:21 AM) Negative 10/01/2019 [facility] URINE AND STOOL UA Blood Negative (10/01/19 10:21 AM) Negative 10/01/2019 [facility] URINE AND STOOL UA Urobilinogen 0.2 0.1 - 1.0 10/01/2019 [facility] URINE AND STOOL UA Nitrite Negative (10/01/19 10:21 AM) Negative 10/01/2019 [facility] URINE AND STOOL UA Leuk Est Negative (10/01/19 10:21 AM) Negative 10/01/2019 [facility] URINE AND STOOL UA Sq Epi Rare /LPF Few /LPF 10/01/2019 [facility] URINE AND STOOL UA WBC 3-5 /HPF None Seen /HPF 10/01/2019 [facility] URINE AND STOOL UA Bacteria Occasional /HPF None Seen /HPF 10/01/2019 [facility] CHEM PANEL Magnesium Lvl 1.8 1.8 - 2.4 09/28/2019 [facility] CHEM PANEL Glucose Lvl 109 70 - 99 09/26/2019 [facility] CHEM PANEL BUN 14 7 - 22 09/26/2019 [facility] CHEM PANEL Creatinine Lvl 0.74 0.50 - 1.40 09/26/2019 [facility] CHEM PANEL Sodium Lvl 142 135 - 145 09/26/2019 [facility] CHEM PANEL Potassium Lvl 4.3 3.5 - 5.1 09/26/2019 Result Comment: Specimen Slightly Hemolyzed. [facility] CHEM PANEL Chloride Lvl 111 95 - 109 09/26/2019 [facility] CHEM PANEL CO2 25 24 - 32 09/26/2019 [facility] CHEM PANEL Calcium Lvl 8.8 8.5 - 10.5 09/26/2019 [facility] CHEM PANEL AGAP 10.3 10.0 - 20.0 09/26/2019 [facility] CHEM PANEL eGFR 92 09/26/2019 Result Comment: The eGFR is calculated using the CKD-EPI formula. In most young, healthy individuals the eGFR will be >90 mL/min/1.73m2. The eGFR declines with age. An eGFR of 60-89 may be normal in some populations, particularly the elderly, for whom the CKD-EPI formula has not been extensively validated. Use of the eGFR is not recommended in the following populations:

Individuals with unstable creatinine concentrations, including patients and those with serious co-morbid conditions.

Patients with extremes in muscle mass or diet.

The data above are obtained from the National Kidney Disease Education Program (NKDEP) which additionally recommends that when the eGFR is used in patients with extremes of body mass index for purposes of drug dosing, the eGFR should be multiplied by the estimated BMI. [facility] CHEM PANEL Magnesium Lvl 1.6 1.8 - 2.4 09/25/2019 [facility] CHEM PANEL ALT 60 0 - 65 09/25/2019 [facility] CHEM PANEL Albumin Lvl 2.2 3.5 - 5.0 09/25/2019 [facility] CHEM PANEL Alk Phos 67 39 - 136 09/25/2019 [facility] CHEM PANEL Bili Total 0.6 0.2 - 1.3 09/25/2019 [facility] CHEM PANEL Total Protein 5.4 6.4 - 8.4 09/25/2019 [facility] CHEM PANEL B/C Ratio 22 6 - 25 09/25/2019 [facility] CHEM PANEL Globulin 3.2 2.7 - 4.2 09/25/2019 [facility] CHEM PANEL A/G Ratio 0.7 0.7 - 1.6 09/25/2019 [facility] CHEM PANEL AST 33 0 - 37 09/25/2019 [facility] CHEM PANEL Phosphorus 2.5 2.5 - 4.5 09/25/2019 [facility] HEMATOLOGY Segs 59.5 45.0 - 75.0 09/25/2019 [facility] HEMATOLOGY Lymphocytes 25.2 20.0 - 40.0 09/25/2019 [facility] HEMATOLOGY Monocytes 12.1 2.0 - 12.0 09/25/2019 [facility] HEMATOLOGY Eosinophils 2.5 0.0 - 4.0 09/25/2019 [facility] HEMATOLOGY Basophils 0.7 0.0 - 1.0 09/25/2019 [facility] HEMATOLOGY Neutrophils # 3.8 1.5 - 8.1 09/25/2019 [facility] HEMATOLOGY Lymphocytes # 1.6 1.0 - 5.5 09/25/2019 [facility] HEMATOLOGY Monocytes # 0.8 0.0 - 0.8 09/25/2019 [facility] HEMATOLOGY Eosinophils # 0.2 0.0 - 0.5 09/25/2019 [facility] HEMATOLOGY WBC 6.4 3.7 - 10.4 09/25/2019 [facility] HEMATOLOGY RBC 3.43 4.70 - 6.10 09/25/2019 [facility] HEMATOLOGY Hgb 11.1 14.0 - 18.0 09/25/2019 [facility] HEMATOLOGY Hct 31.7 42.0 - 54.0 09/25/2019 [facility] HEMATOLOGY MCV 92.6 80.0 - 94.0 09/25/2019 [facility] HEMATOLOGY MCH 32.3 27.0 - 31.0 09/25/2019 [facility] HEMATOLOGY MCHC 34.9 32.0 - 36.0 09/25/2019 [facility] HEMATOLOGY RDW 14.6 11.5 - 14.5 09/25/2019 [facility] HEMATOLOGY Platelet 301 133 - 450 09/25/2019 [facility] HEMATOLOGY MPV 7.9 7.4 - 10.4 09/25/2019 [facility] CHEM PANEL Phosphorus 3.3 2.5 - 4.5 09/20/2019 [facility] CHEM PANEL Vitamin D, 25-OH, Total 8 4 30 - 100 09/20/2019 Result Comment: Vitamin D Status 25-OH Vitamin D:

Deficiency: <20 ng/mL
Insufficiency: 20 - 29 ng/mL
Optimal: > or = 30 ng/mL

For 25-OH Vitamin D testing on patients on
D2-supplementation and patients for whom quantitation
of D2 and D3 fractions is required, the [facility]
25-OH VIT D, (D2,D3), LC/MS/MS is recommended: order
code 83012 (patients >2yrs).
See Note 1

Note 1

For additional information, please refer to
http://education.[employer]/faq/OAV437
(This link is being provided for informational/
educational purposes only.)

Lab test performed by:
[facility]
[id number] [place]
[place] [address]
TAMIA DESOUZA MD [facility] IMMUNOLOGY Prealbumin 12.2 18.0 - 45.0 09/20/2019 [facility] LIPIDS Chol 106 <=199 mg/dL 09/20/2019 [facility] LIPIDS Trig 133 <=149 mg/dL 09/20/2019 [facility] LIPIDS HDL 39 >=61 mg/dL 09/20/2019 [facility] LIPIDS CHD Risk 2.72 4.00 - 7.30 09/20/2019 [facility] LIPIDS LDL (Calculated) 40 <=99 mg/dL 09/20/2019 [facility] LIPIDS VLDL 27 09/20/2019 [facility] SPECIAL CHEMISTRY Hgb A1C 9.2 <=5.6 % 09/20/2019 [facility] URINE AND STOOL UA Color Yellow *NA* (09/19/19 3:13 PM) Yellow 09/19/2019 [facility] URINE AND STOOL UA Turbidity Clear (09/19/19 3:13 PM) Clear 09/19/2019 [facility] URINE AND STOOL UA Spec Grav 1.020 <=1.030 09/19/2019 [facility] URINE AND STOOL UA pH 5.5 5.0 - 8.0 09/19/2019 [facility] URINE AND STOOL UA Protein Negative (09/19/19 3:13 PM) Negative 09/19/2019 [facility] URINE AND STOOL UA Glucose 250 mg/dL Negative mg/dL 09/19/2019 [facility] URINE AND STOOL UA Ketones 15 mg/dL Negative mg/dL 09/19/2019 [facility] URINE AND STOOL UA Bili Small 5 *ABN* (09/19/19 3:13 PM) Negative 09/19/2019 Result Comment: Interpret positive bilirubin results with caution. Confirmatory testing
not possible due to the unavailability of reagent. Correlation with
serum chemistry results recommended. [facility] URINE AND STOOL UA Blood Negative (09/19/19 3:13 PM) Negative 09/19/2019 [facility] URINE AND STOOL UA Urobilinogen 0.2 0.1 - 1.0 09/19/2019 [facility] URINE AND STOOL UA Nitrite Negative (09/19/19 3:13 PM) Negative 09/19/2019 [facility] URINE AND STOOL UA Leuk Est Negative (09/19/19 3:13 PM) Negative 09/19/2019 [facility] URINE AND STOOL UA Sq Epi None Seen (09/19/19 3:13 PM) Few 09/19/2019 [facility] URINE AND STOOL UA WBC 3-5 /HPF None Seen /HPF 09/19/2019 [facility] URINE AND STOOL UA RBC 0-2 /HPF 0 - 2 09/19/2019 [facility] URINE AND STOOL UA Bacteria Occasional /HPF None Seen /HPF 09/19/2019 [facility] URINE AND STOOL UA Uric Ac [place] Moderate /HPF None Seen /HPF 09/19/2019 [facility] CHEM PANEL Magnesium Lvl 1.8 1.8 - 2.4 09/16/2019 [facility] CHEM PANEL Phosphorus 2.5 2.5 - 4.5 09/16/2019 [facility] CHEM PANEL Glucose Lvl 250 70 - 99 09/16/2019 [facility] CHEM PANEL BUN 19 7 - 22 09/16/2019 [facility] CHEM PANEL Creatinine Lvl 0.91 0.50 - 1.40 09/16/2019 [facility] CHEM PANEL Sodium Lvl 135 135 - 145 09/16/2019 [facility] CHEM PANEL Potassium Lvl 4.6 3.5 - 5.1 09/16/2019 [facility] CHEM PANEL Chloride Lvl 104 95 - 109 09/16/2019 [facility] CHEM PANEL CO2 22 24 - 32 09/16/2019 [facility] CHEM PANEL Calcium Lvl 9.0 8.5 - 10.5 09/16/2019 [facility] CHEM PANEL AGAP 13.6 10.0 - 20.0 09/16/2019 [facility] CHEM PANEL eGFR 84 09/16/2019 Result Comment: The eGFR is calculated using the CKD-EPI formula. In most young, healthy individuals the eGFR will be >90 mL/min/1.73m2. The eGFR declines with age. An eGFR of 60-89 may be normal in some populations, particularly the elderly, for whom the CKD-EPI formula has not been extensively validated. Use of the eGFR is not recommended in the following populations:

Individuals with unstable creatinine concentrations, including patients and those with serious co-morbid conditions.

Patients with extremes in muscle mass or diet.

The data above are obtained from the National Kidney Disease Education Program (NKDEP) which additionally recommends that when the eGFR is used in patients with extremes of body mass index for purposes of drug dosing, the eGFR should be multiplied by the estimated BMI. [facility] HEMATOLOGY Segs 81.5 45.0 - 75.0 09/16/2019 [facility] HEMATOLOGY Lymphocytes 9.4 20.0 - 40.0 09/16/2019 [facility] HEMATOLOGY Monocytes 7.7 2.0 - 12.0 09/16/2019 [facility] HEMATOLOGY Eosinophils 0.9 0.0 - 4.0 09/16/2019 [facility] HEMATOLOGY Basophils 0.5 0.0 - 1.0 09/16/2019 [facility] HEMATOLOGY Neutrophils # 11.6 1.5 - 8.1 09/16/2019 [facility] HEMATOLOGY Lymphocytes # 1.3 1.0 - 5.5 09/16/2019 [facility] HEMATOLOGY Monocytes # 1.1 0.0 - 0.8 09/16/2019 [facility] HEMATOLOGY Eosinophils # 0.1 0.0 - 0.5 09/16/2019 [facility] HEMATOLOGY Basophils # 0.1 0.0 - 0.2 09/16/2019 [facility] HEMATOLOGY WBC 14.3 3.7 - 10.4 09/16/2019 [facility] HEMATOLOGY RBC 4.13 4.70 - 6.10 09/16/2019 [facility] HEMATOLOGY Hgb 12.8 14.0 - 18.0 09/16/2019 [facility] HEMATOLOGY Hct 38.3 42.0 - 54.0 09/16/2019 [facility] HEMATOLOGY MCV 92.7 80.0 - 94.0 09/16/2019 [facility] HEMATOLOGY MCH 31.1 27.0 - 31.0 09/16/2019 [facility] HEMATOLOGY MCHC 33.6 32.0 - 36.0 09/16/2019 [facility] HEMATOLOGY RDW 13.9 11.5 - 14.5 09/16/2019 [facility] HEMATOLOGY Platelet 273 133 - 450 09/16/2019 [facility] HEMATOLOGY MPV 7.7 7.4 - 10.4 09/16/2019 [facility] PARATHYROID PROFILE Ca Ion WB 1.12 1.05 - 1.25 09/16/2019 [facility] PARATHYROID PROFILE Ca Norm WB 1.09 1.05 - 1.25 09/16/2019 [facility] CHEM PANEL Glucose Lvl 249 70 - 99 09/16/2019 [facility] CHEM PANEL BUN 18 7 - 22 09/16/2019 [facility] CHEM PANEL Creatinine Lvl 1.00 0.50 - 1.40 09/16/2019 [facility] CHEM PANEL Sodium Lvl 135 135 - 145 09/16/2019 [facility] CHEM PANEL Potassium Lvl 4.5 3.5 - 5.1 09/16/2019 [facility] CHEM PANEL Chloride Lvl 101 95 - 109 09/16/2019 [facility] CHEM PANEL CO2 23 24 - 32 09/16/2019 [facility] CHEM PANEL Calcium Lvl 9.0 8.5 - 10.5 09/16/2019 [facility] CHEM PANEL AGAP 15.5 10.0 - 20.0 09/16/2019 [facility] CHEM PANEL eGFR 74 09/16/2019 Result Comment: The eGFR is calculated using the CKD-EPI formula. In most young, healthy individuals the eGFR will be >90 mL/min/1.73m2. The eGFR declines with age. An eGFR of 60-89 may be normal in some populations, particularly the elderly, for whom the CKD-EPI formula has not been extensively validated. Use of the eGFR is not recommended in the following populations:

Individuals with unstable creatinine concentrations, including patients and those with serious co-morbid conditions.

Patients with extremes in muscle mass or diet.

The data above are obtained from the National Kid[employer] Education Program (NKDEP) which additionally recommends that when the eGFR is used in patients with extremes of body mass index for purposes of drug dosing, the eGFR should be multiplied by the estimated BMI. [facility] IMMUNOLOGY HIV Ag/Ab 4th Gen Negat junito *NA* (09/15/19 4:54 PM) Negative 09/15/2019 [facility] CHEM PANEL Glucose Lvl 249 70 - 99 09/15/2019 [facility] CHEM PANEL BUN 19 7 - 22 09/15/2019 [facility] CHEM PANEL Creatinine Lvl 1.07 0.50 - 1.40 09/15/2019 [facility] CHEM PANEL Sodium Lvl 132 135 - 145 09/15/2019 [facility] CHEM PANEL Potassium Lvl 4.7 3.5 - 5.1 09/15/2019 [facility] CHEM PANEL Chloride Lvl 99 95 - 109 09/15/2019 [facility] CHEM PANEL CO2 20 24 - 32 09/15/2019 [facility] CHEM PANEL Calcium Lvl 9.1 8.5 - 10.5 09/15/2019 [facility] CHEM PANEL AGAP 17.7 10.0 - 20.0 09/15/2019 [facility] CHEM PANEL eGFR 68 09/15/2019 Result Comment: The eGFR is calculated using the CKD-EPI formula. In most young, healthy individuals the eGFR will be >90 mL/min/1.73m2. The eGFR declines with age. An eGFR of 60-89 may be normal in some populations, particularly the elderly, for whom the CKD-EPI formula has not been extensively validated. Use of the eGFR is not recommended in the following populations:

Individuals with unstable creatinine concentrations, including patients and those with serious co-morbid conditions.

Patients with extremes in muscle mass or diet.

The data above are obtained from the National Kid[employer] Disease Education Program (NKDEP) which additionally recommends that when the eGFR is used in patients with extremes of body mass index for purposes of drug dosing, the eGFR should be multiplied by the estimated BMI. [facility] CHEM PANEL Phosphorus 3.1 2.5 - 4.5 09/15/2019 [facility] CHEM PANEL Magnesium Lvl 1.8 1.8 - 2.4 09/15/2019 [facility] HEMATOLOGY WBC 17.2 3.7 - 10.4 09/15/2019 [facility] HEMATOLOGY RBC 4.44 4.70 - 6.10 09/15/2019 [facility] HEMATOLOGY Hgb 13.9 14.0 - 18.0 09/15/2019 [facility] HEMATOLOGY Hct 40.6 42.0 - 54.0 09/15/2019 [facility] HEMATOLOGY MCV 91.5 80.0 - 94.0 09/15/2019 [facility] HEMATOLOGY MCH 31.2 27.0 - 31.0 09/15/2019 [facility] HEMATOLOGY MCHC 34.1 32.0 - 36.0 09/15/2019 [facility] HEMATOLOGY RDW 14.0 11.5 - 14.5 09/15/2019 [facility] HEMATOLOGY Platelet 268 133 - 450 09/15/2019 [facility] HEMATOLOGY MPV 7.8 7.4 - 10.4 09/15/2019 [facility] HEMATOLOGY Segs 86.3 45.0 - 75.0 09/15/2019 [facility] HEMATOLOGY Lymphocytes 6.4 20.0 - 40.0 09/15/2019 [facility] HEMATOLOGY Monocytes 6.6 2.0 - 12.0 09/15/2019 [facility] HEMATOLOGY Eosinophils 0.4 0.0 - 4.0 09/15/2019 [facility] HEMATOLOGY Basophils 0.3 0.0 - 1.0 09/15/2019 [facility] HEMATOLOGY Neutrophils # 14.9 1.5 - 8.1 09/15/2019 [facility] HEMATOLOGY Lymphocytes # 1.1 1.0 - 5.5 09/15/2019 [facility] HEMATOLOGY Monocytes # 1.1 0.0 - 0.8 09/15/2019 [facility] HEMATOLOGY Eosinophils # 0.1 0.0 - 0.5 09/15/2019 [facility] PARATHYROID PROFILE Ca Ion WB 0.97 1.05 - 1.25 09/15/2019 [facility] PARATHYROID PROFILE Ca Norm WB 0.97 1.05 - 1.25 09/15/2019 [facility] HEMATOLOGY ASA Effect Plt 466 09/15/2019 [facility] CHEM PANEL Osmolality 285 280 - 300 09/15/2019 [facility] IMMUNOLOGY Coronavirus (COVID-19) NA A Not Detected (09/14/19 8:04 PM) Not Detected 09/15/2019 [facility] URINE CHEM U Osmolality 233 300 - 800 09/15/2019 [facility] URINE CHEM U Sodium 53 09/15/2019 [facility] URINE CHEM U Potassium 11.2 09/15/2019 [facility] URINE CHEM U Chloride 43 09/15/2019 [facility] HEMATOLOGY ACT (TEG) Rapid 121 86 - 118 09/15/2019 [facility] HEMATOLOGY Split Point Rapid 0.6 09/15/2019 [facility] HEMATOLOGY R-time Rapid 0.8 0.4 - 0.7 09/15/2019 [facility] HEMATOLOGY K-time Rapid 1.3 0.6 - 2.3 09/15/2019 [facility] HEMATOLOGY Angle Rapid 73 64 - 80 09/15/2019 [facility] HEMATOLOGY Max Amplitude Rapid 68 52 - 71 09/15/2019 [facility] HEMATOLOGY G-value Rapid 10.4 5.0 - 11.6 09/15/2019 [facility] HEMATOLOGY Estimated % Lysis Rapid 1 .8 0.0 - 7.5 09/15/2019 [facility] URINE AND STOOL UA Turbidity Clear (09/14/19 7:21 PM) Clear 09/15/2019 [facility] URINE AND STOOL UA Spec Grav 1.005 <=1.030 09/15/2019 [facility] URINE AND STOOL UA pH 7.0 5.0 - 8.0 09/15/2019 [facility] URINE AND STOOL UA Protein Negative mg/dL Negative mg/dL 09/15/2019 [facility] URINE AND STOOL UA Glucose 500 mg/dL Negative mg/dL 09/15/2019 [facility] URINE AND STOOL UA Ketones Trace mg/dL Negative mg/dL 09/15/2019 [facility] URINE AND STOOL UA Bili Negative *NA* (09/14/19 7:21 PM) Negative 09/15/2019 [facility] URINE AND STOOL UA Blood Large *ABN* (09/14/19 7:21 PM) Negative 09/15/2019 [facility] URINE AND STOOL UA Urobilinogen <1.0 0.1 - 1.0 09/15/2019 [facility] URINE AND STOOL UA Nitrite Negative (09/14/19 7:21 PM) Negative 09/15/2019 [facility] URINE AND STOOL UA Leuk Est Negative (09/14/19 7:21 PM) Negative 09/15/2019 [facility] URINE AND STOOL UA Sq Epi Occasional /LPF Few /LPF 09/15/2019 [facility] URINE AND STOOL UA WBC 4 0 - 5 09/15/2019 [facility] URINE AND STOOL UA RBC 9 0 - 2 09/15/2019 [facility] URINE AND STOOL UA Color STRAW 09/15/2019 [facility] CARDIAC ENZYMES Total CK 129 12 - 191 09/14/2019 [facility] CARDIAC ENZYMES Troponin-I <0.02 0.00 - 0.40 09/14/2019 [facility] CHEM PANEL Total Protein 6.8 6.4 - 8.4 09/14/2019 [facility] CHEM PANEL Albumin Lvl 2.6 3.5 - 5.0 09/14/2019 [facility] CHEM PANEL ALANINE AMINOTRANSFERASE 17 0 - 65 09/14/2019 [facility] CHEM PANEL ASPARTATE TRANSAMINASE 20 0 - 37 09/14/2019 [facility] CHEM PANEL Alk Phos 69 39 - 136 09/14/2019 [facility] CHEM PANEL Bili Total 0.9 0.2 - 1.3 09/14/2019 [facility] CHEM PANEL B/C Ratio 21 6 - 25 09/14/2019 [facility] CHEM PANEL Globulin 4.2 2.7 - 4.2 09/14/2019 [facility] CHEM PANEL A/G Ratio 0.6 0.7 - 1.6 09/14/2019 [facility] CHEM PANEL Lactic Acid Lvl 1.6 0.5 - 2.2 09/14/2019 [facility] HEMATOLOGY WBC X 10x3 15.6 3.7 - 10.4 09/14/2019 [facility] HEMATOLOGY RBC X 10x6 4.42 4.70 - 6.10 09/14/2019 [facility] HEMATOLOGY Hgb 14.0 14.0 - 18.0 09/14/2019 [facility] HEMATOLOGY Hct 40.2 42.0 - 54.0 09/14/2019 [facility] HEMATOLOGY MCV 91.1 80.0 - 94.0 09/14/2019 [facility] HEMATOLOGY MCH 31.7 27.0 - 31.0 09/14/2019 [facility] HEMATOLOGY MCHC 34.8 32.0 - 36.0 09/14/2019 [facility] HEMATOLOGY RDW 13.9 11.5 - 14.5 09/14/2019 [facility] HEMATOLOGY Platelet 268 133 - 450 09/14/2019 [facility] HEMATOLOGY MPV 7.6 7.4 - 10.4 09/14/2019 [facility] HEMATOLOGY PT 12.9 12.0 - 14.7 09/14/2019 [facility] HEMATOLOGY INR 0.97 0.85 - 1.17 09/14/2019 [facility] HEMATOLOGY PTT 29.5 22.9 - 35.8 09/14/2019 [facility] HEMATOLOGY Segs 83.1 45.0 - 75.0 09/14/2019 [facility] HEMATOLOGY Lymphocytes 8.4 20.0 - 40.0 09/14/2019 [facility] HEMATOLOGY Monocytes 7.6 2.0 - 12.0 09/14/2019 [facility] HEMATOLOGY Eosinophils 0.4 0.0 - 4.0 09/14/2019 [facility] HEMATOLOGY Basophils 0.5 0.0 - 1.0 09/14/2019 [facility] HEMATOLOGY Neutrophils # 13.0 1.5 - 8.1 09/14/2019 [facility] HEMATOLOGY Lymphocytes # 1.3 1.0 - 5.5 09/14/2019 [facility] HEMATOLOGY Monocytes # 1.2 0.0 - 0.8 09/14/2019 [facility] HEMATOLOGY Eosinophils # 0.1 0.0 - 0.5 09/14/2019 [facility] HEMATOLOGY Basophils # 0.1 0.0 - 0.2 09/14/2019 [facility] BEDSIDE GLUCOSE TESTING Gluc POC Lif scn 122 70 - 99 08/19/2011 [facility] <sup>1</sup>Interpretive Data: Upper Reportable Limit: 200 mg/dL. [facility] BEDSIDE GLUCOSE TESTING Comment1 Notify RN/ 08/19/2011 [facility] BEDSIDE GLUCOSE TESTING Gluc POC Lif scn 152 70 - 99 08/19/2011 [place] <sup>2</sup>Interpretive Data: Upper Reportable Limit: 200 mg/dL. [facility] BEDSIDE GLUCOSE TESTING Comment1 Notify RN/ 08/19/2011 [facility] BEDSIDE GLUCOSE TESTING Gluc POC Lif scn 139 70 - 99 08/18/2011 [place] <sup>3</sup>Interpretive Data: Upper Reportable Limit: 200 mg/dL. [facility] BEDSIDE GLUCOSE TESTING Comment1 Notify RN/ 08/18/2011 [facility] BEDSIDE GLUCOSE TESTING Comment2 Notify RN/ 08/16/2011 [facility] BEDSIDE GLUCOSE TESTING Comment2 Notify RN/ 08/16/2011 [facility] HEMATOLOGY Lymphocytes 24.2 20.0 - 40.0 08/14/2011 Normal [facility] HEMATOLOGY Monocytes 8.0 2.0 - 12.0 08/14/2011 Normal [facility] HEMATOLOGY Segs 66.7 45.0 - 75.0 08/14/2011 Normal [facility] HEMATOLOGY Eosinophils 0.9 0.0 - 4.0 08/14/2011 Normal [facility] HEMATOLOGY Basophils 0.2 0.0 - 1.0 08/14/2011 Normal [facility] HEMATOLOGY Segs-Bands # 4.7 1.5 - 8.1 08/14/2011 Normal [facility] HEMATOLOGY Lymphocytes # 1.7 1.0 - 5.5 08/14/2011 Normal [facility] HEMATOLOGY Eosinophils # 0.1 0.0 - 0.5 08/14/2011 Normal [facility] HEMATOLOGY Monocytes # 0.6 0.0 - 0.8 08/14/2011 Normal [facility] HEMATOLOGY Basophils # 0.0 0.0 - 0.2 08/14/2011 Normal [facility] HEMATOLOGY MPV 7.4 7.4 - 10.4 08/14/2011 Normal [facility] HEMATOLOGY Platelet 155 133 - 450 08/14/2011 Normal [facility] MCH 32.6 27.0 - 31.0 08/14/2011 [facility] HEMATOLOGY RDW 13.2 11.5 - 14.5 08/14/2011 Normal [facility] MCHC 34.2 32.0 - 36.0 08/14/2011 Normal [facility] WBC 7.1 3.7 - 10.4 08/14/2011 Normal [facility] Hgb 10.3 14.0 - 18.0 08/14/2011 LOW [facility] RBC 3.15 4.70 - 6.10 08/14/2011 [facility] MCV 95.3 80.0 - 94.0 08/14/2011 [facility] Hct 30.0 42.0 - 54.0 08/14/2011 LOW [facility] HEMATOLOGY PT 13.1 12.0 - 14.7 08/13/2011 Normal [facility] INR 0.99 0.85 - 1.17 08/13/2011 Normal <sup>4</sup>Interpretive Data: RECOMMEND ED RANGES FOR PROTIME INR:
2.0-3.0 for most medical and surgical thromboembolic states.
2.5-3.5 for artificial heart valves and recurrent embolism.

INR SHOULD BE USED ONLY FOR PATIENTS ON STABLE ANTICOAGULANT THERAPY. [facility] HEMATOLOGY RBC 4.14 4.70 - 6.10 08/13/2011 LOW [facility] WBC 7.0 3.7 - 10.4 08/13/2011 Normal [facility] HEMATOLOGY Hgb 13.4 14.0 - 18.0 08/13/2011 LOW [facility] HEMATOLOGY Hct 39.2 42.0 - 54.0 08/13/2011 LOW [facility] HEMATOLOGY MCH 32.4 27.0 - 31.0 08/13/2011 [facility] HEMATOLOGY MCV 94.7 80.0 - 94.0 08/13/2011 [facility] HEMATOLOGY RDW 13.1 11.5 - 14.5 08/13/2011 Normal [facility] HEMATOLOGY MCHC 34.2 32.0 - 36.0 08/13/2011 Normal [facility] MPV 7.4 7.4 - 10.4 08/13/2011 Normal [facility] Platelet 216 133 - 450 08/13/2011 Normal [facility] HEMATOLOGY Monocytes # 0.4 0.0 - 0.8 08/13/2011 Normal [facility] HEMATOLOGY Basophils 0.1 0.0 - 1.0 08/13/2011 Normal [facility] HEMATOLOGY Segs-Bands # 5.3 1.5 - 8.1 08/13/2011 Normal [facility] HEMATOLOGY Lymphocytes # 1.3 1.0 - 5.5 08/13/2011 Normal [facility] HEMATOLOGY Eosinophils # 0.0 0.0 - 0.5 08/13/2011 Normal [facility] Basophils # 0.0 0.0 - 0.2 08/13/2011 Normal [facility] Lymphocytes 18.0 20.0 - 40.0 08/13/2011 LOW [facility] Segs 75.0 45.0 - 75.0 08/13/2011 Normal [facility] Eosinophils 0.6 0.0 - 4.0 08/13/2011 Normal [facility] Monocytes 6.3 2.0 - 12.0 08/13/2011 Normal [facility] Pathology Reports No Data Provided for This Section Diagnostic Reports Report Value Date Source Abdomen AP DX PROCEDURE INFORM ATION: Exam: XR Abdomen, 1 View Exam date and time: 09/30/2019 1:40 PM Age: 73 years old Clinical indication: /eval stool burden TECHNIQUE: Imaging protocol: XR of the abdomen. Views: Frontal supine view of the abdomen. 1 View. COMPARISON: ABDOMEN AP DX 09/19/2019 4:14 PM FINDINGS: Gastrointestinal tract: There is a non-obstructive bowel gas pattern. There is no abnormal dilatation of bowel loops. Transverse colon contains minimal stool. There is no pneumatosis or mass effect. Bones/joints: Unremarkable. Soft tissues: No abnormal radiopaque densities. IMPRESSION: No acute findings. Minimal stool in transverse colon Arturo Desai MD On 09/30/2019 14:49:29; [id number] 09/30/2019 [facility] Hip 2/3 views uni w pelvis DX PROCEDURE INFORMATION: Exam: XR Left Hip with Pelvis when Performed Exam date and time: 09/20/2019 10:25 AM Age: 73 years old Clinical indication: /eval for acute osseous abnormality, fractures TECHNIQUE: Imaging protocol: XR Left hip with pelvis when performed. Views: 2 or 3 views. AP 1 view pelvis with 1 frogleg lateral view left hip COMPARISON: OT CHEST, ABDOMEN, PELVIS WO CONTRAST CT 09/14/2019 7:52 PM FINDINGS: Bones/joints: No fracture or dislocation. Mild degenerative changes about the visualized lower lumbar spine. Soft tissues: There are no radio-opaque foreign bodies. Gastrointestinal tract: Residual contrast is seen within visualized colon. Colonic diverticulosis noted. Bilateral iliac artery calcification. Moderate amount of stool in the rectal vault. Notes: If there is further concern, recommend follow-up radiographs or MRI for complete assessment. IMPRESSION: 1. No fracture or dislocation. Jabier Geller MD On 09/20/2019 15:19:34; [id number] 09/20/2019 [facility] Abdomen AP DX PROCEDURE INFORM ATION: Exam: XR Abdomen, 1 View Exam date and time: 09/19/2019 4:14 PM Age: 73 years old Clinical indication: /eval for stool burden TECHNIQUE: Imaging protocol: XR of the abdomen. Views: Frontal supine view of the abdomen. 1 View. COMPARISON: OT CHEST, ABDOMEN, PELVIS WO CONTRAST CT 09/14/2019 7:52 PM FINDINGS: AP image. Moderate residual contrast throughout the colon. Multiple distal colon diverticula. Normal bowel gas pattern. No abnormal stool burden. Minor spondylosis. IMPRESSION: Retained colonic contrast. Moderate colonic diverticulosis. Nick Stoddard MD On 09/19/2019 21:33:20; [id number] 09/19/2019 [facility] Brain wo contrast CT Radiation Dose CTDIVOL = 60.86 (mGy): DLP = 1128.98 (mGy-cm) PROCEDURE INFORMATION: Exam: CT Head Without Contrast Exam date and time: 09/19/2019 4:06 PM Age: 73 years old Clinical indication: /eval for intracranial pathology; History of tbi TECHNIQUE: Imaging protocol: Computed tomography of the head without contrast. Radiation optimization: All CT scans at this facility use at least one of these dose optimization techniques: automated exposure control; mA and/or kV adjustment per patient size (includes targeted exams where dose is matched to clinical indication); or iterative reconstruction. COMPARISON: BRAIN WO CONTRAST CT 09/14/2019 9:07 PM RADIATION DOSE METRICS: CTDI volume (mGy): 60.86 mGy Total DLP (mGy-cm): 1128.98 FINDINGS: Brain: Low-density subdural fluid accumulations are present along the convexities bilaterally, measuring approximately 10 mm in thickness on the right and 12 mm in thickness on the left. These measure [address] density and are compatible with presence of subdural hygromas, stable and unchanged as compared to a study performed 5 days earlier. The cause flattening of the adjacent surfaces of the cerebral convexities. No midline shift identified. No mass lesion or hemorrhage is seen. Ventricles: Normal. No ventriculomegaly. Bones/joints: Unremarkable. No acute fracture. Sinuses: Mild left frontal, moderate bilateral ethmoid and mild bilateral maxillary sinus opacification is present. Sinusitis is chronic. No fluid levels. Mastoid air cells: Visualized mastoid air cells are well aerated. Soft tissues: Unremarkable. IMPRESSION: No acute intracranial abnormality. Chelsea Maynard MD On 09/19/2019 17:53:30; [id number] 09/19/2019 [facility] Chest 2 views DX PROCEDURE INF ORMATION: Exam: XR Chest, 2 Views Exam date and time: 09/19/2019 4:14 PM Age: 73 years old Clinical indication: /eval for underlying infiltrates or atelectasis TECHNIQUE: Imaging protocol: XR of the chest Views: 2 views. PA and Lateral COMPARISON: CR CHEST 1VIEW DX 09/14/2019 8:43 PM FINDINGS: AP and lateral images, two views. Normal cardiac silhouette. Ectatic atherosclerotic aorta. Incompletely inflated lungs. No pneumonia, vascular congestion or pleural effusion. Moderate thoracic spondylosis. Retained colonic contrast. IMPRESSION: No acute abnormality. Nick Stoddard MD On 09/19/2019 21:34:19; [id number] 09/19/2019 [facility] Ankle 3 views DX EXAM: XR LEFT ANKLE 3 VIEWS DATE: 09/18/2019 2:10 PM CDT INDICATION: - Fall, L ankle swelling, tenderness COMPARISON: None. TECHNIQUE: AP, oblique and lateral radiographs of the ankle FINDINGS: No acute fracture or malalignment is identified. The ankle mortise is congruent. Mild to moderate midfoot degenerative changes. Prominent posterior and plantar calcaneal enthesophytes. There is generalized bony demineralization. No soft tissue abnormality is identified. Atherosclerotic calcifications are present. IMPRESSION: 1. No acute bony abnormality. 2. Mild to moderate midfoot degenerativ e changes. 3. Prominent calcaneal enthesophytes. 09/18/2019 [facility] Esophagus BA swallow function video DX EXAM: FLUOROSCOPY MODIFIED BARIUM SWALLOW DATE: 09/17/2019 12:50 CDT INDICATION: - Dysphagia on speech eval. COMPARISON: None. TECHNIQUE: Oral barium contrast of differing consistencies was given to the patient to assess swallowing mechanism. The study was performed in conjunction with speech pathology. FLUOROSCOPY TIME: 1 minute 17 seconds FLUOROSCOPY DOSE: 7.79 mGy DISCUSSION: The patient was given barium contrast of different consistencies. Thin barium: Thin barium was given by spoon and by straw. Flash penetration was seen when thin barium was given by straw with large swallows. There is minimal vallecular residual. Pudding barium: Normal without penetration or aspiration and with minimal vallecular residual. Solid with barium: Normal without penetration or aspiration. Vallecular residual cleared with multiple swallows and with the thin barium wash. IMPRESSION: 1. Flash penetration with thin barium o therwise normal exam 2. Please also see detailed chart note by speech pathology. 09/17/2019 [facility] Brain wo contrast CT EXAM: CT HEAD WITHOUT CONTRAST DATE: 09/14/2019 8:13 PM CDT INDICATION: 73 years old Male patient with history of Pain Post Trauma - Eval for stability. TECHNIQUE: Multiple axial images were obtained through the head from vertex to the skull base. Axial bone algorithm reconstruction images are provided. COMPARISON: CT head 09/14/2019 from 1340 hours. FINDINGS: Redemonstration of hyperdense subdural effusion overlying bilateral cerebral hemispheres measuring 1.1 cm bilaterally. No acute new hemorrhage is identified. No midline shift or herniation. The ventricles are unchanged in size. The wolfe- white matter differentiation is maintained. The paranasal sinuses are clear. No mastoid effusion is identified. Calvarium is intact. IMPRESSION: Stable bilateral hypodense extra-axial effusions may represent chronic subdural hematoma or hygroma. No acute new hemorrhage is identified. 09/14/2019 [facility] Chest 1view DX EXAM: XR CHEST 1 VIEW DATE: 09/14/2019 20:29 CDT INDICATION: Altered mental status. COMPARISON: CT chest, abdomen, and pelvis obtained earlier the same day. TECHNIQUE: AP chest. FINDINGS: Lines, tubes and hardware: None. Lungs and pleura: Low lung volumes are present, with bibasilar subsegmental atelectasis. The costophrenic sulci are sharp without effusion. No pneumothorax is identified within the limitations of this supine radiograph. Heart and mediastinum: The heart size is normal. The mediastinal contours are normal. Bones and soft tissues: No acute abnormality. Mild bilateral acromioclavicular degenerative changes. IMPRESSION: 1. No acute abnormality. UT SECTION: ER 09/14/2019 [facility] Spine-Outside Consult CT EXAM: CT CERVICAL SPINE WITHOUT CONTRAST DATE: 09/14/2019 19:53 CDT INDICATION: - fall, second interpretation requested COMPARISON: None. TECHNIQUE: Noncontrast CT images of the cervical spine, obtained at [place], [place]. Axial, sagittal and coronal images provided. UT SECTION: ER FINDINGS: The spine is imaged from the skull base to the level of T1. Sr. Vendor Management Associate: Noncontributory. No acute fracture or malalignment is identified. Multilevel degenerative changes of the spine are visualized with multilevel small osteophytes and moderate bilateral facet and uncovertebral hypertrophy causing multilevel neural foraminal narrowing. Vertebral body and disc heights are preserved. Soft tissues: No soft tissue abnormality is identified. IMPRESSION: 1. No acute traumatic abnormality of th e cervical spine 2. Multilevel degenerative changes of t he spine, as described. 09/14/2019 [facility] Brain-Outside Consult CT EXAM: CT HEAD WITHOUT CONTRAST DATE: 09/14/2019 7:53 PM CDT INDICATION: 73 years old Male patient with history of - fall. Altered mental status TECHNIQUE: Multiple axial images were obtained through the head from vertex to the skull base. Axial bone algorithm reconstruction images are provided. COMPARISON: None. FINDINGS: No acute intracranial hemorrhage is identified. Mild global brain parenchymal volume loss with corresponding mild prominence of the ventricles. Subdural hyperdense effusion is seen overlying the left cerebral hemisphere measuring 1.0 cm in maximal thickness. A smaller subdural effusion is seen overlying the right cerebral hemisphere measuring 0.9 cm in thickness. Associated mass effect resulting in 0.2 cm [id number] midline shift. No parenchymal mass is identified. Mild periventricular white matter hypodensities, nonspecific and most commonly secondary to chronic microvascular ischemia. The wolfe-white matter differentiation is maintained. IMPRESSION: Second opinion consultation 1. Bilateral extra-axial hypodense fluid collections along the cerebral convexities measuring 1.0 cm on the left and 0.9 cm on the right. These may represent chronic subdural hematoma or hygroma. 2. Left right midline shift by approxima tely 0.2 cm may be positional. No herniation. 09/14/2019 [facility] Torso-Outside Consult CT EXAM: CT CHEST WITHOUT CONTRAST EXAM: CT ABDOMEN AND PELVIS WITHOUT CONTRAST DATE: 09/14/2019 19:52 CDT INDICATION: - Fall, second interpretation requested. COMPARISON: None TECHNIQUE: Volumetric CT of the chest, abdomen and pelvis were acquired at [facility] without intravenous administration of contrast. Axial, coronal and sagittal images are provided. UT SECTION: ER FINDINGS: Please note that the study is limited without intravenous contrast. Sr. Vendor Management Associate: Noncontributory. Lines and tubes: None. Lower Neck: Supraclavicular soft tissues are unremarkable. Thoracic Aorta and Mediastinum: No mediastinal hematoma. No pericardial effusion. No aneurysmal dilation of the aorta.Dense coronary artery calcifications are noted. Lungs, Pleura, Diaphragm: No pulmonary contusions. Multiple right middle lobe and lower lobe nodules measuring up to 4 mm are noted on series 3 image 29 and 26. No pleural effusion or pneumothorax. No diaphragmatic injury. Liver and biliary tree: Limited evaluation due to streak artifacts. No injury. No biliary abnormality. Right lobe of liver cyst measuring 1.8 cm. Gallbladder: Normal. No CT evidence of gallstones. No injury. Pancreas: Normal. No injury. Spleen: Normal. No injury. Adrenals: Normal. No injury. Kidneys and ureters: Moderate bilateral perinephric fat stranding. No definite injury. No hydronephrosis. Bladder: Normal. No injury. Reproductive organs: No injury. Gastrointestinal tract: Small hiatal hernia noted. No bowel injury. Colonic diverticulosis without diverticulitis noted. Moderate colonic and rectal stool burden. Peritoneum and retroperitoneum: No fluid collections or free air. Lymph nodes: Normal. Vasculature: Mild aortoiliac atherosclerotic calcifications. Spine/ Bones: No acute abnormality of the spine. Age-related degenerative changes with multilevel anterior osteophytes. No other bony injury. Cortical irregularity and permeative appearance of the right humeral diaphysis noted on series 3 image 2. Soft tissues: Lower anterior abdominal wall subcutaneous soft tissue contusion. IMPRESSION: Please note that the study is limited without intravenous contrast. 1. Lower anterior abdominal wall subcut aneous soft tissue contusion. 2. Multiple subcentimeter pulmonary nod ules measuring up to 4 mm can be evaluated with additional follow-up CT in 12 months. 3. Cortical irregularity/permeative derek earance of the right humeral diaphysis is probably artifactual. Recommend correlation with right humerus radiograph. 4. Small esophageal hiatal hernia and c olonic diverticulosis without diverticulitis. 09/14/2019 [facility] Brain wo contrast MRI EXAM: MR I OF THE BRAIN WITHOUT CONTRAST DATE:Jul 24, 2014 10:57:00 AM CLINICAL HISTORY: 331.0 Alzheimer's Disease COMPARISON: None available. TECHNIQUE : Multiplanar, multisequence imaging of the brain was obtained without contrast. FINDINGS: Diffusion sequences are normal. There is moderate generalized cortical and deep white matter volume loss with passive enlargement of the ventricles and sulci. There is no lobar dominance. There are very mild periventricular deep white matter changes without pontine involvement. Is no cortical signal abnormality. The lateral ventricles, cortical sulci, and basal cisterns are patent. The cerebellar tonsils are above foramen magnum. The sella is normal. The vascular flow-voids are unremarkable. The paranasal sinuses, orbits and mastoids are unremarkable. IMPRESSION: 1. Moderate generalized supratentorial v olume loss without lobar dominance. 2. Mild periventricular chronic small ve ssel ischemic changes. No previous cortical ischemic event identified. 07/24/2014 [facility] Consultation Notes No Data Provided for This Section Discharge Summaries No Data Provided for This Section History and Physicals No Data Provided for This Section Vital Signs Vital Sign Value Date Comments Source Respitory Rate 20 10/08/2019 [facility] Heart Rate 83 10/08/2019 [facility] Systolic (mm Hg) 111 10/08/2019 [facility] Diastolic (mm Hg) 74 10/08/2019 [facility] Heart Rate 51 10/08/2019 [facility] Respitory Rate 18 10/08/2019 [facility] Systolic (mm Hg) 87 10/08/2019 [facility] Diastolic (mm Hg) 43 10/08/2019 [facility] Heart Rate 99 10/07/2019 [facility] Respitory Rate 16 10/07/2019 [facility] Systolic (mm Hg) 109 10/07/2019 [facility] Diastolic (mm Hg) 68 10/07/2019 [facility] Temperature Oral (F) 98.2 F 10/06/2019 [facility] Temperature Oral (F) 98.0 F 10/06/2019 [facility] Temperature Oral (F) 98.3 F 10/06/2019 [facility] Height 170.18 cm 09/19/2019 [facility] Weight 83.636 09/19/2019 [facility] BMI Calculated 28.88 09/19/2019 [facility] Respitory Rate 23 09/16/2019 [facility] Systolic (mm Hg) 136 09/16/2019 [facility] Diastolic (mm Hg) 64 09/16/2019 [facility] Respitory Rate 22 09/16/2019 [facility] Systolic (mm Hg) 137 09/16/2019 [facility] Diastolic (mm Hg) 72 09/16/2019 [facility] Respitory Rate 21 09/16/2019 [facility] Systolic (mm Hg) 140 09/16/2019 [facility] Diastolic (mm Hg) 73 09/16/2019 [facility] Temperature Oral (F) 97.9 F 09/16/2019 [facility] Temperature Oral (F) 98.0 F 09/16/2019 [facility] Temperature Oral (F) 98.2 F 09/16/2019 [facility] Height 175.26 cm 09/15/2019 [facility] Weight 91.1 09/15/2019 [facility] BMI Calculated 29.66 09/15/2019 [facility] Weight 90.909 09/14/2019 [facility] Heart Rate 122 09/14/2019 [facility] Respitory Rate 18 08/19/2011 [facility] Diastolic (mm Hg) 79 08/19/2011 [facility] Heart Rate 79 08/19/2011 [facility] Temperature Oral (F) 98.2 F 08/19/2011 [facility] Systolic (mm Hg) 147 08/19/2011 [facility] Heart Rate 86 08/19/2011 [facility] Temperature Oral (F) 99.0 F 08/19/2011 [facility] Diastolic (mm Hg) 78 08/19/2011 [facility] Systolic (mm Hg) 157 08/19/2011 [facility] Respitory Rate 16 08/19/2011 [facility] Temperature Oral (F) 99.1 F 08/19/2011 [facility] Heart Rate 91 08/19/2011 [facility] Respitory Rate 20 08/19/2011 [facility] Systolic (mm Hg) 149 08/19/2011 [facility] Diastolic (mm Hg) 81 08/19/2011 [facility] Height 172.72 cm 08/13/2011 [facility] Weight 97.727 08/13/2011 [facility] Encounters Location Location Details Encounter Type Encounter Number Reason For Visit Attending Provider ADM Date DC Date Status Source [facility] Inpatient [id number] EPISTAXIS GERARD BETTS 08/13/2011 08/19/2011 Active [facility] [id number] 00 Tamia Osman 07/24/2014 07/25/[address] [facility] Inpatient [id number] [facility] 09/14/2019 09/14/2019 [facility]hab [id number] Candido March 09/19/2019 10/08/2019 [facility] Procedures No Data Provided for This Section Assessment and Plan Assessment and Plan Date Source Extracted from:Title: PM&R Discharge [facility] Author: Kyrie Baires DO Date: 10/08/19 Brain Injury Rehabilitation Discharge Summary Admission Date: Patient was admitted on 09/19/2019 Discharge Date: 10/08/2019 11:25 Admission Diagnoses: Traumatic subdural hemorrhage with loss of consciousness of unspecified duration, subsequent encounter (S06.5X9D) Cognitive communication deficit (R41.841) Abnormalities of gait and mobility (R26) Neuromuscular dysfunction of bladder, 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 Cameron is a 73 yo M w/ diabetes and dementia who presents w/ bilateral hygromas 2/2 fall w/ head trauma and potential LOC two weeks ago. He initially presented to OS in [place] and was found to have subdural hematoma, observed, and then discharged. Over the next week, he had worsening AMS, lethargy, no urine output, poor oral intake, and stopped walking. At which point he was brought to [place] ED 09/13 and admitted to neuro ICU for correction of hyponatremia of 127. Repeat CT head showed bilateral hygromas 1.0cm L and 0.9cm R. Neurosurgery was consulted but deferred surgery due to stable condition. Transferred to [facility] for rehab. During interview Mr. Cameron had difficulty hearing the questions. Mr. Cameron remembers falling down and hitting his head but is unable to remember if he had LOC. However, later in the interview, he seems to have forgotten previously endorsed facts and expresses concern/disorienation as to where he is and why he is here. Does not remember d/c from OSH and returning home for 1 week after fall. Does not remember last BM or void. Reports pain in his lower exremities, primarily in L hip and ankle. Patient is an unreliable historian and much of encounter is limited due to patient's baseline v. new-onset cognitive impairments as well as hearing difficulties. Prior to patient's accident, pt was independent with all ADLs and mobility. Patient now with functional deficits and was thought to be a good candidate for comprehensive inpatient rehabilitation at [facility]. Pertinent Past Medical and Surgical History: diabetes, dementia Social History: lives with and daughter at home no previous TBI's Family History: no family history Allergies: codeine Hospital Course: Patient was admitted to acute inpatient rehabilitation on 09/19/19. Patient was admitted on significant doses of seroquel with noted decreased arousal. Seroquel was tapered off and discontinued on 09/22. The patient complained of neck pain and lidocaine patch and Voltaren gel order placed. Patient started on Ritalin for attention deficits titrated up to methylphenidate 10mg BID. Patient placed on mirtazapine for poor appetite and poor sleep. Gabapentin trialed for sleep which the patient did not tolerate with marked decrease in arousal noted. The patient was trialed modafinil which was discontinued on 10/03. Patient bowel regiment updated as needed. Functional Scores at Discharge: PT Current Status PT Treatment Recommendations Pt. is a 73 yo M w/ diabetes and dementia who presents with cognitive impairments, TBI and admitted to [facility] to address ongoing rehabiliation needs. Patient initially presented to OSH in [place] and subsequently discharged but presented to [facility] on 09/13 roughly one week after a prior fall due to continued and progressive functional decline. Found to have bilateral hygromas 2/2 fall w/head trauma and potential LOC on initial trauma. Patient currently requires mod to max A for bed mobility due to impaired cognition, confusion, and possible apraxia. He requires mod A for squat-pivot and stand-pivot transfers and min A for sit<>stand and static standing with B UE support. He is limited by confusion, impaired cognition, dementia, poor safety awareness, and intermittent agitation. Performed: 09/20/19 12:45 Mobility Functional Abilities Roll Left and Right: Independent - 06 Performed: 10/07/19 11:00 Sit to Lying: Supervision or touching assist-04 Lying to Sitting on Side of Bed: Supervision or touching assist-04 Sit to Stand: Supervision or touching assist-04 Chair,Bed to Chair Transfer: Supervision or touching assist-04 Toilet Transfer: Partial/Mod assist-03 Car Transfer: NA - Not attempted-09 Walk 10 Feet: Supervision or touching assist-04 Walk 50 Feet with Two Turns: Partial/Mod assist-03 Walk 150 Feet: Partial/Mod assist-03 Walking 10 Feet Uneven Surfaces: NA - Not attempted-09 1 Step (Curb): NA - Not attempted-09 Picking Up Object: NA - Not attempted-09 Patient Use Wheelchair,Scooter: Yes Wheel 50 Feet with Two Turns: Supervision or touching assist-04 Wheel 150 feet: Supervision or touching assist-04 Type Wheelchair,Scooter Use 50ft: Manual wheelchair Type Wheelchair,Scooter Use 150ft: Manual wheelchair OT Current Status OT Treatment Recommendations PTis a 73 yo M w/ diabetes and dementia who presents with cognitive impairments, TBI and admitted to [facility] to address ongoing rehabiliation needs. Patient initially presented to OSH in [place] and subsequently discharged but presented to [facility] on 09/13 roughly one week after a prior fall due to continued and progressive functional decline. Found to have bilateral hygromas 2/2 fall w/head trauma and potential LOC on initial trauma. During initial OT eval, pt noted with confusion/disorientation with slight increase in agitation when attempting to transfer out of bed for toileting, per pt request. Due to confusion, pt with decreased comprehension of task and then reported no longer having urgency. Pt also noted with sequencing deficifts and decreased spatial-orientation. BUE ROM WFL; however pt with decreased strength and overall deconditioned. Pt also with increased lethargy and difficult to engage despite max auditory and tactile redirection. Due ot deficits, pt requires increased assist to complete functional transfers and ADLs. Pt demonstrates potential to increase overall performance and will benefit from intensive skilled OT Services for neuromuscular reeducation including strength and endurance training, ADL training, cognitive and visual-perceptual training, seating and positioning, and pt/caregiver education to increase pt's overall QoL and decrease caregiver burden. Performed: 09/20/19 09:00 Self Care Functional Abilities Eating: Setup or clean-up assist-05 Performed: 10/07/19 12:00 Oral Hygiene: Setup or clean-up assist-05 Toileting Hygiene: Partial/Mod assist-03 Shower, Bathe Self: Partial/Mod assist-03 Upper Body Dressing: Supervision or touching assist-04 Lower Body Dressing: Partial/Mod assist-03 Putting On, Taking Off Footwear: Partial/Mod assist-03 SECURITY OPERATIONS SPECIALIST Current Status Severity Level Comprehension: Maximal prompting - 2 Performed: 10/07/19 14:06 Comprehension Mode: Auditory Expression: Moderate prompting - 3 Expression Mode: Vocal Memory: Tot A - 1 Problem Solving: Tot A - 1 Social Interaction: Maximal prompting - 2 Procedures during Rehab admission: None Physical Exam at Discharge: Gen: NAD. Appears well-nourished. Seen sitting in a chair. AAOx1. Thought he was in [place] in the . HEENT: NC/AT. MMM. No scleral icterus. CV: No pallor. No cyanosis. RRR. Pulm: Respirations nonlabored on room air. No cough. Lungs CTAB. GI: Abdomen soft, non-distended. MSK: No peripheral edema in the BLEs, marked loss of cervical lordosis Neuro: Patient's seen sleeping at the bedside, alert, impaired attention. Patient has decreased initiation, but attention is poor - able to hold conversation, but needs examiner to repeat questions. Patient did ask today about being in [place]. Psych: cooperative. No restlessness, anxiety, or irritability noted. Meds: Discharge Medications sitaGLIPtin 50 mg oral tablet :50 mg, 1 tab, PO, Daily, 30 tab, 2 Refill(s) Ordered by: Candido March MD 10/07/2019 15:06 lisinopril 2.5 mg oral tablet :2.5 mg, 1 tab, PO, Bedtime, 30 tab, 2 Refill(s) Ordered by: Candido March MD 10/07/2019 15:05 Insulin Pen [place] Misc/Other :See Instructions, Dispense 1 needle daily for Lantus Solostar pen., 30 pen needle, 0 Refill(s) Ordered by: Candido March MD 10/07/2019 14:53 Lantus Solostar Pen 100 units/mL subcutaneous solution :18 unit, SUB-Q, Bedtime, 2 ea, 2 Refill(s) Ordered by: Candido March MD 10/07/2019 14:50 polyethylene glycol 3350 oral powder for reconstitution :17 gm, PO, Daily, 527 gm, 2 Refill(s) Ordered by: Candido March MD 10/07/2019 14:49 mirtazapine 15 mg oral tablet :7.5 mg, 0.5 tab, PO, Bedtime, 15 tab, 2 Refill(s) Ordered by: Candido March MD 10/07/2019 14:49 methylphenidate 10 mg oral tablet :10 mg, 1 tab, PO, BID-08-31, for 30 day, 60 tab, 0 Refill(s) Ordered by: Candido March MD 10/07/2019 14:49 metFORMIN 1000 mg oral tablet :1,000 mg, 1 tab, PO, BID-Meals, 60 tab, 2 Refill(s) Ordered by: Candido March MD 10/07/2019 14:49 Voltaren Topical 1% topical gel :2 gm, TOP, QID, Apply to neck and upper shoulders., 100 gm, 2 Refill(s) Ordered by: Candido March MD 10/07/2019 14:49 docusate sodium 100 mg oral capsule :100 mg, 1 cap, PO, BID, 60 cap, 2 Refill(s) Ordered by: Candido March MD 10/07/2019 14:48 senna 8.6 mg oral tablet :17.2 mg, 2 tab, PO, Daily, 60 tab, 2 Refill(s) Ordered by: Candido March MD - 10/07/2019 14:48 metoprolol tartrate 25 mg oral tablet :25 mg, 1 tab, PO, BID, 60 tab, 2 Refill(s) Ordered by: Candido March MD - 10/07/2019 14:48 melatonin 3 mg oral tablet :6 mg, 2 tab, PO, Bedtime, 60 tab, 0 Refill(s) Ordered by: Candido March MD - 10/07/2019 14:48 Condition of Patient on Discharge: Stable Disposition/Instructions/Follow Up Helpful Information Quantitative Equity Head: Quantitative Equity Head: Danyelle Talavera [phone] Comments: Please call with any questions Cuffer: Cuffer: Mahi Conklin [phone] Comments: Please call with any questions or concerns Follow up Care Provider: Julio C Lopez, Physical Medicine/Rehabilitation Service Address: [address] [place] [id number] Comments: [phone] Provider: Candido March, Physical Medicine/Rehabilitation Service Address: [address] [place] [phone] Provider: Penelope Stallings, Physical Medicine/Rehabilitation Service Address: [address] [place] [phone] Comments: [phone] Please follow up in the [facility] Other: PCP Comments: Follow up in 1-2 weeks Other: Neurology Comments: Follow up as directed Discharge Location: Diet: Diet: Diet Carbohydrate Controlled Oral Supplement: LoCarb HiPro (example: Boost Glucose), 3 cans per day Activities: As tolerated The discharge plan was reviewed and discussed with the patient/family and appropriate education and counseling was provided. They were given the opportunity to ask any questions which were answered to the best of my knowledge. Issues to address during [facility] follow up visit: - methylphenidate for cognitive deficits - urinary retention on discharge with Ur ology outpatient follow up - sleep on mirtazapine and melatonin - neck pain on Voltaren gel Extracted from:Title: SOAP Note: Rehab * Author: Ariana Pretty Date: 10/08/19 Subjective Patient seen in room, getting discharged.. Health Status Allergies: Allergic Reactions (Selected) Severity Not Documented Codeine- No reactions were documented., Allergies (1) Active Reaction codeine None Documented Medications Current medications: (Selected) Inpatient Medications Ordered Dextrose 50% Syringe (D50W): 12.5 gm, 25 mL, IVP, PRN, PRN: Blood Glucose Results Dextrose 50% Syringe (D50W): 25 gm, 50 mL, IVP, PRN, PRN: Blood Glucose Results Januvia: 50 mg, 2 tab, PO, Daily Milk of Magnesia: 30 ml, PO, Q24H, PRN: Constipation MiraLax: 17 gm, PO, Daily Ritalin: 10 mg, 1 tab, PO, BID--12 Saline Flush 0.9%: 10 mL, IVP, PRN, PRN: Line Flush Tylenol: 650 mg, 2 tab, PO, Q6H, PRN: Pain Score 1-3 Voltaren Topical 1% topical gel: 2 gm, 1 appl, TOP, QID bisacodyl: 10 mg, 1 supp, ND, Bedtime, PRN: Constipation docusate: 100 mg, 1 cap, PO, BID glucagon: 1 mg, IM, PRN, PRN: Blood Glucose Results heparin: 5,000 unit, 1 mL, SUB-Q, Q8H insulin glargine 100 units/mL subcutaneous solution: 18 unit, 0.18 mL, SUB-Q, Bedtime insulin lispro: 1 unit, 0.01 mL, SUB-Q, Bedtime, PRN: Blood Glucose Results insulin lispro: 1 unit, 0.01 mL, SUB-Q, TID-Before Meals, PRN: Blood Glucose Results insulin lispro: 2 unit, 0.02 mL, SUB-Q, Bedtime, PRN: Blood Glucose Results insulin lispro: 2 unit, 0.02 mL, SUB-Q, TID-Before Meals, PRN: Blood Glucose Results insulin lispro: 3 unit, 0.03 mL, SUB-Q, Bedtime, PRN: Blood Glucose Results insulin lispro: 3 unit, 0.03 mL, SUB-Q, TID-Before Meals, PRN: Blood Glucose Results insulin lispro: 4 unit, 0.04 mL, SUB-Q, Bedtime, PRN: Blood Glucose Results insulin lispro: 4 unit, 0.04 mL, SUB-Q, TID-Before Meals, PRN: Blood Glucose Results insulin lispro: 5 unit, 0.05 mL, SUB-Q, TID-Before Meals, PRN: Blood Glucose Results levETIRAcetam: 1,500 mg, IV, PRN, PRN: Seizure lisinopril: 2.5 mg, 0.5 tab, PO, Bedtime melatonin: 6 mg, 2 tab, PO, Bedtime metFORMIN 500 mg oral tablet: 1,000 mg, 2 tab, PO, BID-Meals metoprolol tartrate: 25 mg, 1 tab, PO, BID midazolam: 5 mg, 1 mL, IM, PRN, PRN: Seizure mirtazapine: 7.5 mg, 0.5 tab, PO, Bedtime senna: 17.2 mg, 2 tab, PO, QNoon Prescriptions Prescribed Insulin Pen [place] Misc/Other: See Instructions, Dispense 1 needle daily for Lantus Solostar pen., 30 pen needle, 0 Refill(s) Lantus Solostar Pen 100 units/mL subcutaneous solution: 18 unit, SUB-Q, Bedtime, 2 ea, 2 Refill(s) Voltaren Topical 1% topical gel: 2 gm, TOP, QID, Apply to neck and upper shoulders., 100 gm, 2 Refill(s) docusate sodium 100 mg oral capsule: 100 mg, 1 cap, PO, BID, 60 cap, 2 Refill(s) lisinopril 2.5 mg oral tablet: 2.5 mg, 1 tab, PO, Bedtime, 30 tab, 2 Refill(s) melatonin 3 mg oral tablet: 6 mg, 2 tab, PO, Bedtime, 60 tab, 0 Refill(s) metFORMIN 1000 mg oral tablet: 1,000 mg, 1 tab, PO, BID-Meals, 60 tab, 2 Refill(s) methylphenidate 10 mg oral tablet: 10 mg, 1 tab, PO, BID-07-12, for 30 day, 60 tab, 0 Refill(s) metoprolol tartrate 25 mg oral tablet: 25 mg, 1 tab, PO, BID, 60 tab, 2 Refill(s) mirtazapine 15 mg oral tablet: 7.5 mg, 0.5 tab, PO, Bedtime, 15 tab, 2 Refill(s) polyethylene glycol 3350 oral powder for reconstitution: 17 gm, PO, Daily, 527 gm, 2 Refill(s) senna 8.6 mg oral tablet: 17.2 mg, 2 tab, PO, Daily, 60 tab, 2 Refill(s) sitaGLIPtin 50 mg oral tablet: 50 mg, 1 tab, PO, Daily, 30 tab, 2 Refill(s), Medications (31) Active Scheduled: (13) diclofenac 1% 100gm Top Gel 2 gm 1 appl, TOP, QID docusate sodium 100 mg CAP 100 mg 1 cap, PO, BID heparin 5000 unit/1 ml INJ VL 5,000 unit 1 mL, SUB-Q, Q8H insulin GLARGINE 100unit/ml INJ 3ml PEN 18 unit 0.18 mL, SUB-Q, Bedtime lisinopril 5 mg TAB 2.5 mg 0.5 tab, PO, Bedtime melatonin 3 mg TAB 6 mg 2 tab, PO, Bedtime metFORMIN 500 mg TAB 1,000 mg 2 tab, PO, BID-Meals methylphenidate 10 mg TAB 10 mg 1 tab, PO, BID-08-31 metoprolol tartrate 25 mg TAB 25 mg 1 tab, PO, BID mirtazapine 15 mg TAB 7.5 mg 0.5 tab, PO, Bedtime polyethylene glycol 17 gm packet 17 gm, PO, Daily senna 8.6 mg TAB 17.2 mg 2 tab, PO, QNoon sitaGLIPtin 25mg tab 50 mg 2 tab, PO, Daily Continuous: (0) PRN: (18) acetaminophen 325 mg TABLET 650 mg 2 tab, PO, Q6H bisacodyl 10 mg rect SUPP 10 mg 1 supp, ND, Bedtime Dextrose 50% 50 ml INJ syringe 12.5 gm 25 mL, IVP, PRN Dextrose 50% 50 ml INJ syringe 25 gm 50 mL, IVP, PRN glucagon recombinant 1 mg PDR 1 mg, IM, PRN insulin lispro 100 unit/ml 3 ml Vial 1 unit 0.01 mL, SUB-Q, TID-Before Meals insulin lispro 100 unit/ml 3 ml Vial 2 unit 0.02 mL, SUB-Q, TID-Before Meals insulin lispro 100 unit/ml 3 ml Vial 3 unit 0.03 mL, SUB-Q, TID-Before Meals insulin lispro 100 unit/ml 3 ml Vial 4 unit 0.04 mL, SUB-Q, TID-Before Meals insulin lispro 100 unit/ml 3 ml Vial 5 unit 0.05 mL, SUB-Q, TID-Before Meals insulin lispro 100 unit/ml 3 ml Vial 1 unit 0.01 mL, SUB-Q, Bedtime insulin lispro 100 unit/ml 3 ml Vial 2 unit 0.02 mL, SUB-Q, Bedtime insulin lispro 100 unit/ml 3 ml Vial 3 unit 0.03 mL, SUB-Q, Bedtime insulin lispro 100 unit/ml 3 ml Vial 4 unit 0.04 mL, SUB-Q, Bedtime levETIRAcetam 500mg/ 5ml Vial 1,500 mg, IV, PRN magnesium hydroxide 2400mg 30 ml UD THAD 30 ml, PO, Q24H midazolam 5 mg/mL INJ VL 5 mg 1 mL, IM, PRN sodium chloride 0.9% 10 ml flush syr BD 10 mL, IVP, PRN . Problem list: All Problems Bilateral chronic intracranial subdural hematoma / SNOMED CT 519781103 / Confirmed Diabetes mellitus / SNOMED CT 957586689 / Confirmed Discomfort / SNOMED CT 306439244 / Confirmed SDH (subdural hematoma) / SNOMED CT 3014945073 / Confirmed HTN - Hypertension / SNOMED CT 7584498898 / Confirmed Minor surgery done / SNOMED CT 100429716 / Confirmed Nose bleed / SNOMED CT 64195639 / Confirmed Pain / SNOMED CT 72518189 / Confirmed Weakness / SNOMED CT 95244371 / Confirmed, Active Problems (9) Bilateral chronic intracranial subdural hematoma Diabetes mellitus Discomfort HTN - Hypertension Minor surgery done Nose bleed Pain SDH (subdural hematoma) Weakness Objective VS/Measurements Vital Signs (last 24 hrs) Last Charted Heart Rate Peripheral L 51bpm (OCT 06:30) Resp Rate 18 BRMIN (OCT 06:) SBP L 87mmHg (OCT 06:) Neck: Non-tender. Respiratory: Lungs are clear to auscultation, Respirations are non-labored, Breath sounds are equal. Cardiovascular: Normal rate, Regular rhythm, No murmur. Gastrointestinal: Soft, Non-tender, Non-distended, Normal bowel sounds. Results Review Results review Labs (Last four charted values) WBC 5.8 (OCT 01) 6.9 (SEP 30) 6.4 (SEP 24) 6.2 (SEP 19) Hgb L 12.7 (OCT 01) L 12.1 (SEP 30) L 11.1 (SEP 24) L 12.3 (SEP 19) Hct L 37.8 (OCT 01) L 35.4 (SEP 30) L 31.7 (SEP 24) L 36.8 (SEP 19) Plt 242 (OCT 01) 250 (SEP 30) 301 (SEP 24) 303 (SEP 19) Na 142 (OCT 01) 140 (SEP 30) 142 (SEP 25) 144 (SEP 24) K 4.3 (OCT 01) 4.3 (SEP 30) 4.3 (SEP 25) C 3.0 (SEP 24) CO2 26 (OCT 01) 27 (SEP 30) 25 (SEP 25) 27 (SEP 24) Cl 109 (OCT 01) 106 (SEP 30) H 111 (SEP 25) 108 (SEP 24) Cr 0.97 (OCT 01) 1.28 (SEP 30) 0.74 (SEP 25) 0.72 (SEP 24) BUN 15 (OCT 01) 18 (SEP 30) 14 (SEP 25) 16 (SEP 24) Glucose Random H 150 (OCT 01) H 196 (SEP 30) H 109 (SEP 25) H 114 (SEP 24) Mg 1.8 (OCT 01) 1.8 (SEP 27) L 1.6 (SEP 24) L 1.6 (SEP 19) Phos 3.0 (OCT 01) 2.5 (SEP 24) 3.3 (SEP 19) Ca 9.2 (OCT 01) 9.2 (SEP 30) 8.8 (SEP 25) 8.5 (SEP 24) Lab results 10/08/2019 07:24 Glucose POC 97 mg/dL Normal Gluc POC Comment 1 Notified RN/MD POC Performing Location See Note 10/08/2019 02:44 Glucose POC 98 mg/dL Normal Gluc POC Comment 1 Notified RN/MD POC Performing Location See Note 10/07/2019 20:14 Glucose POC 124 mg/dL HI Gluc POC Comment 1 Notified RN/MD POC Performing Location See Note 10/07/2019 16:49 Glucose POC 129 mg/dL HI POC Performing Location See Note 10/07/2019 12:05 Glucose POC 155 mg/dL HI POC Performing Location See Note 10/07/2019 07:48 Glucose POC 114 mg/dL HI POC Performing Location See Note 10/07/2019 03:18 Glucose POC 154 mg/dL HI POC Performing Location See Note Impression and Plan HTN- cont Metoprolol, add Lisinopril 2.5 mg HS - increase Metoprolol to 50 mg q 12 w parameters 7-. DC Lisinopril and increase Metoprolol to 75 mg 8-2, monitor 8-3,5, Bp control 8-,7, moniotr 8-9 - VSS 8-, 11. Cont current dose and monitor closely as Modafinil started 8, 13 - Metoprolol decreased to 50 mg, cont and adjust as indicated 8-14, 15. Decrease Metoprolol o 25 mg 10-05, monitor, hold metoprolol 10-06 DM2 A1c 9.0. cont Lantus 18 units daily and Lispro 10 units TID w meals, add Lisinopril (monitor renal fxn), add statin if possible - Glucose 118-180 (16). Increase Lantus to 20 units daily 09-19. Lantus increased 09-19, cont current Meds 8-1. Increase Lispro to 12 units with meals - , will start po meds , d/c meal lispro, increase Metformin to 1000mg bid 8- [id number], add Januvia 25mg, decrease lantus to 15units - Lantus at 10 units- increase to 15 units 8-. First dose on increased Lantus tonight -. Increase Lantus to 18 units 8-. Increase Sitagliptin to 50 mg daily 8-15, sugars 114-171 8 SDH- PT/OT/SECURITY OPERATIONS SPECIALIST Dementia- per daughter- defer to PMR -. Consider decreasing Seroquel to 25 mg- defer to PMR 8-1. Seroquel dc'd 8-12 Tachycardia- Metoprolol. Increase Metoprolol to 50 mg q 12 w parameters 7- increase Metoprolol to 75 mg 8-2 . Stable 8-3,improved on 75mg bid 8-6 - Metoprolol decreased to 50 mg, cont and adjust as indicated 8-14, 15. Decrease Metoprolol to 25 mg 8-16, tolerating lower dose HR 5's Hold BB Vit D Def- cont ergocalciferol, check level. Level is 84. (8-11) Macrocytic Anemia- mild, weekly and prn labs 7-30, stable asymptomatic AMS- Seroquel HS per PMR 7-,d/c on Ritalin. Seroquel dc'd 8-12 Muscle Spasms- Tizanidine per PMR. Now dc'd 8-1 Hiatal Hernia- small Addendum by Renard Zapata MD on 10/10/2019 11:18 Pt seen and examined. Agree with the physical exam and plan documented by the PA. Extracted from:Title: pm&r History and Physical Author: Justin Stewart DO Date: 09/19/19 Brain Injury History and Physical Date of Admission: 09/19/2019 12:52 Transferring facility:[facility] Admitting Physician: Candido March MD Reason for Admission: Comprehensive rehabilitation to address multiple impairments Chief Complaint: cognitive impairments Previous documentation in the medical record was comprehensively reviewed and highlighted to formulate this history and physical. HISTORY OF PRESENT ILLNESS: History primarily obtained via review of the medical record Per chart review, Mr. Cameron is a 73 yo M w/ diabetes and dementia who presents w/ bilateral hygromas 2/2 fall w/ head trauma and potential LOC two weeks ago. He initially presented to OSH in [place] and was found to have subdural hematoma, observed, and then discharged. Over the next week, he had worsening AMS, lethargy, no urine output, poor oral intake, and stopped walking. At which point he was brought to [place] ED 09/13 and admitted to neuro ICU for correction of hyponatremia of 127. Repeat CT head showed bilateral hygromas 1.0cm L and 0.9cm R. Neurosurgery was consulted but deferred surgery due to stable condition. Transferred to [facility] for rehab. During interview Mr. Cameron had difficulty hearing the questions. Mr. Cameron remembers falling down and hitting his head but is unable to remember if he had LOC. However, later in the interview, he seems to have forgotten previously endorsed facts and expresses concern/disorienation as to where he is and why he is here. Does not remember d/c from OSH and returning home for 1 week after fall. Does not remember last BM or void. Reports pain in his lower exremities, primarily in L hip and ankle. Patient is an unreliable historian and much of encounter is limited due to patient's baseline v. new-onset cognitive impairments as well as hearing difficulties. Prior to patient's accident, pt was independent with all ADLs and mobility. Patient now with functional deficits and was thought to be a good candidate for comprehensive inpatient rehabilitation at [facility]. Current Level of Function per pre-admission assessment: Bathing : MAX A Bed Mobility : CGA Bed Wheelchair Transfer : MIN A, MOD A Bladder : Total A Bowel : MAX A Eating : Distant S, Close S Grooming : MIN A Locomotion Walk : MIN A, MOD A Locomotion Wheelchair : MAX A Lower Body Bathing : Total A Lower Extremity Dressing : Total A Rolling-Left to Right : CGA Rolling-Right to Left : CGA Toilet Transfer : MOD A Sit to Stand : MIN A Supine to Sit : MIN A Tub, Shower Transfer : Does not occur Upper Body Bathing : MOD A Upper Extremity Dressing : MOD A PAST MEDICAL HISTORY: diabetes, dementia ALLERGIES: codeine SOCIAL HISTORY: Reportedly lives in a one story house with his . There are steps at the front and back door. Requires walker to ambulate. FAMILY HISTORY: Limited from patient due to cognitive deficits SOCIAL HISTORY: Limited from patient due to cognitive deficits. Current Medications: Medications (30) Active Scheduled Meds (10): 09/19/19 QUEtiapine 25 mg PO Bedtime 09/19/19 docusate 100 mg PO BID 09/19/19 ergocalciferol (ergocalciferol 50,000 intl units oral capsule) 50,000 IntlUnit PO qWeek 09/19/19 heparin 5,000 unit SUB-Q Q8H 09/20/19 insulin glargine (insulin glarg ine 100 units/mL subcutaneous solution) 18 unit SUB-Q Daily 09/19/19 insulin lispro 10 unit SUB-Q TI D-Before Meals 09/19/19 lisinopril 2.5 mg PO Bedtime 09/19/19 melatonin 6 mg PO Bedtime 09/19/19 metoprolol (metoprolol tartrate ) 25 mg PO BID 09/20/19 senna 17.2 mg PO QNoon Unscheduled Meds: None PRN Meds (18): 09/19/19 Dextrose 50% in Water IV (Dextr ose 50% Syringe (D50W)) 12.5 gm IVP PRN 09/19/19 Dextrose 50% in Water IV (Dextr ose 50% Syringe (D50W)) 25 gm IVP PRN 09/19/19 QUEtiapine 50 mg PO Q12H 09/19/19 bisacodyl 10 mg ND Bedtime 09/19/19 glucagon 1 mg IM PRN 09/19/19 insulin lispro 1 unit SUB-Q TID -Before Meals 09/19/19 insulin lispro 2 unit SUB-Q TID -Before Meals 09/19/19 insulin lispro 3 unit SUB-Q TID -Before Meals 09/19/19 insulin lispro 4 unit SUB-Q TID -Before Meals 09/19/19 insulin lispro 5 unit SUB-Q TID -Before Meals 09/19/19 insulin lispro 1 unit SUB-Q Bed time 09/19/19 insulin lispro 2 unit SUB-Q Bed time 09/19/19 insulin lispro 3 unit SUB-Q Bed time 09/19/19 insulin lispro 4 unit SUB-Q Bed time 09/19/19 levETIRAcetam 1,500 mg IV PRN 09/19/19 magnesium hydroxide (Milk of Gibson riddle) 30 ml PO Q24H 09/19/19 midazolam 5 mg IM PRN 09/19/19 sodium chloride (Saline Flush 0 .9%) 10 mL IVP PRN One Time Meds (2): 09/18/19 (Deleted) insulin glargine 8 u nit SUB-Q ONCE 0 ml/hr 09/18/19 (Completed) insulin glargine 8 unit SUB-Q ONCE 0 ml/hr Continuous Infusions: None REVIEW OF SYSTEMS: Limited due to patient's cognitive status and impairments PHYSICAL EXAMINATION: Vitals Tmp(F) Pulse BP RR SpO2 FIO2 09/18 13:08 97.3 96 143/91 1 8 --- --- 24 Hr Tmax: 97.3F (36.28c) at 09/18 13:0 8 Vital Signs are the last 5 in the past 48 hours. General: Awake, lethargic, but perks up at sight of Dr. Bailey on tv, in discomfort when ranging left extremity HEENT: PERRL, EOMI, edematous left side of face Neck: supple, trachea midline CV: RRR, S1S2, no murmurs/gallops/regurgitation, no signs of cardiovascular instability Lungs: CTAB, non-labored respirations Abd: soft, NT, ND, +BS : no gibbons Psych: intermittently frustrated with interview questioning, affect restricted Skin: Sacral ulceration, stage 2 Neuro: Mental Status: [place], lethargic Level of consciousness: Awake, responsive but limited Orientation: Poor orientation; oriented to self Attention/Concentration: Poor attention, easily distractible, exam limited Memory/speech and language: Exam limited, correctly identifies pen and use, fluent and intelligible but question comprehension? Inconsistent responses to questioning CN: mild left sided facial droop but intact sensation, uvula midline Sensory: grossly intact to light touch on all extremities Cerebellar: dysmetria appreciated, dysdiadochokinesia Reflexes: brisk right sided patellar reflex, unable to elicit left patellar, vo's reflex negative b/l, ankle clonus evaluation deferred due to LE pain MUSCULOSKELETAL:normal tone, bulk and full PROM of upper and lower extremities. No edema. MMT out of 5: Muscle L R Shoulder abductors 4 4 Elbow flexors 4 4 Wrist extensors 4 4 Elbow extensors 4 4 Finger flexors 4 4 Hip flexion 3* 3* Knee extension 3* 3* Ankle dorsiflexion * * Ankle plantarflexion * * BLE exam limited by pain LABORATORY DATA: No qualifying data available Reviewed labs from transferring facility. IMAGING: X-Ray L ankle 09/17 IMPRESSION: 1. No acute bony abnormality. 2. Mild to moderate midfoot degenerativ e changes. 3. Prominent calcaneal enthesophytes. Brain wo contrast CT 09/19/2019 17:53 Impression: No acute intracranial abnormality. Chelsea Maynard MD On 09/19/2019 17:53:30; [id number] Reviewed imaging reports from transferring facility. PRECAUTIONS: Precaution-Swallow 09/19/19 13:14:00 CDT, Swallowing precautions. If patient is unable to swallow pills, call Pharmacy for liquid form of medication; if not available the medications need to be crushed. Then, administer via feeding tube or in pudding/apple sauce. Fall precautions, DVT precautions, Seizure precautions, Aspiration precautions IMPRESSION: 73 yo M w/ diabetes and dementia who pre sents with cognitive impairments, TBI and admitted to [facility] to address ongoing rehabiliation needs. Patient initially presented to OS in [place] and subsequently discharged but presented to [facility] on 09/13 roughly one week after a prior fall due to continued and progressive functional decline. Found to have bilateral hygromas 2/2 fall w/head trauma and potential LOC on initial trauma. Impairments: TBI Cognitive deficits Dysphagia Neurogenic bladder Neurogenic bowel Pain Activity limitations: Decreased mobility Decreased transfers Decreased speech Decreased ADLs Participation restrictions: Driving Return to work/school Taking care of the home Recreation and leisure activities Buddhism activities Community reintegration PLAN: Rehabilitation: - The patient will require physician samia rsshaila and coordination of an interdisciplinary team, 24 hour rehabilitation nursing for management of bowel, bladder, skin integrity, medication management, safety measures and preventing risk factors and complications. The patient will require a minimum of 3 hours of therapy a day for 5-7 days a week throughout the hospitalization, including at least the followin-2 hours Physical Therapy, 1-2 hours Occupational Therapy and Exercise and Multidisciplinary Groups. These disciplines will be needed in order to improve the patients impairments in mobility, transfers, activities of daily living, and evaluation of durable medical equipment if needed at discharge. In addition, the patient may also receive 1-2 additional hours of one or all of the following: Speech Language Pathology, Swallowing Training, Neuropsychology, Cognitive Training, Behavior Training, Music Therapy and Therapeutic Recreation as appropriate. Social Work and Case Management will be consulted to assist with discharge planning and family coping strategies. TBI 2/2 fall History of dementia with unknown baseline prior to trauma. Subdural hematomas with bilateral hygromas. Seen by NSGY who deferred intervention at this time. - Repeat CTh on admission - holding ASA; pt previously taking it d aily prior to recent trauma - SECURITY OPERATIONS SPECIALIST/Neuropsych to evaluate - impaired ADLs, independence; aggressiv e therapies with PT/OT/SECURITY OPERATIONS SPECIALIST Cognitive deficits: Patient with significant cognitive deficits complicated by underlying history of dementia. Awake, alert, arousable, but confused, easily distractible with incoherent thought process although re-directable. - Environmental modifications to decreas e excessive stimulation including turning off the lights - Consider starting neurostimulants e.g. Nuvigil, amantadine or methylphenidate - SECURITY OPERATIONS SPECIALIST to evaluate and treat cognitive de ficits. Neuropsych will follow and perform testing if/when appropriate. - Monitor sleep/wake cycles to ensure op timal arousal and participation with therapies. CV: - continue metoprolol tartrate 25mg PO B ID - regular vitals checks to monitor BP - continue lisinopril 2.5mg PO Qhs DM: HbA1c 9.0. On insulin. - scheduled insulin - SSI with accuchecks - medicine consult to optimize BG MSK: Patient notably with edematous left ankle. Exam limited by patient's endorsement of pain. - Prior L ankle radiograph reviewed and negative for fracture - L hip pain, pending L radiographs to r ule out fracture Diet/FEN/Supportive: - Patient currently on regular carb-cont rolled diet. - Monitor patient for dysphagia. - Aspiration risk - Continue therapies with SECURITY OPERATIONS SPECIALIST. SECURITY OPERATIONS SPECIALIST to pe rform swallow evaluation and provide oral motor exercises if necessary. - Dieticians consult - Will check Prealbumin level on admissi on - Patient noted to be hyponatremic at pr ior facility, risk for salt-wasting - metabolic panel on admission Constipation: - Continue bowel regimen to facilitate r egular BMs - Monitor BMs closely Neurogenic bladder: - Patient with bladder dysfunction follo wing TBI - Timed voids with PVR q4H x3. If PVR > 300mL or if patient is unable to void, straight cath patient. - Check admission U/A and C&S ID: No signs of underlying infectious process. Will monitor closely. - Admission UA pending - CBC on admission Wounds: Noted Stage 2 sacral wound. Will monitor - wound consult - Pressure relief q2h while in bed. Clos e monitoring for signs of breakdown Pain: Nociceptive Neuropathic Will monitor closely and adjust as appropriate. - Adjust analgesics based on VAS - tylenol PRN - L hip radiograph to r/o fx Sleep/Mood: - optimize environmental conditions to f acilitate appropriate sleep/wake schedule - EKG on admission to establish baseline as potential therapeutics can cause conduction abnormalities - continue seroquel - continue melatonin Prophylaxis: - DVT:heparin 5000u SQ Q8h Dispo: - Anticipate patient will be discharged to home upon completion of inpatient rehabilitation. - Prognosis:Good - Goals include decrease caregiver burde n, establish bowel and bladder program, maintain nutritional status, increase PO intake, Min A- supvn ADLs gait and mobility, Min A to Supvn for cognition and communication,wound care, and DME evaluation. - Estimated length of stay: 3-4 weeks - Discharge Location/Date: pending inter disciplinary conference Addendum by Rica Silveira MD on 09/19/2019 22:40 PM&R ATTENDING PHYSICIAN ADDENDUM POST-ADMISSION PHYSICIAN EVALUATION I saw and examined the patient, and I discussed the patient with the resident physician, Dr. Stewart. I agree with the documentation, including the history, physical exam, assessment and plan. The patient presents for inpatient rehabilitation following traumatic brain injury. There are no medical or functional changes since the pre-admission assessment. The patient has ongoing medical and functional impairments that can safely be met in the IRF setting, and these needs cannot be adequately addressed in a lower level of care, as the patient requires 24 hour nursing and daily medical management. The patient also has comorbidities, which necessitate close medical supervision, specialized rehabilitation nursing, and skilled therapy intervention. The patient is able to participate in and benefit from an acute inpatient rehabilitation program, with anticipated measurable gains as a result of this program. Prior to this event, the patient was independent. Currently, the patient is mod-maxA. There are no obvious barriers to disposition to the community following the IRF admission. Initial Plan of Care: Patient will require oversight by a rehabilitation physician and 24 hour rehabilitation nursing for management of bowel, bladder, skin integrity, medication management, safety measures, and preventing risk factors and complications. Patient will require a minimum of 3 hours of therapy a day for 5- 7 days a week throughout the hospitalization, including at least the followin-2 hours Physical Therapy, 1-2 hours Occupational Therapy, and 1 hour Speech- Language pathology, Neuropsychology, Exercise and Multidisciplinary Groups. These disciplines will be needed in order to improve the patient's impairments in mobility, transfers, activities of daily living, swallowing and cognition, and evaluation of durable medical equipment if needed at discharge. Social Work and Case Management will be consulted to assist with discharge planning and family coping strategies. Date of service: 09/19/2019 Prognosis: good Estimated Length of Stay: 2-3 weeks Discharge disposition: expected home w/ family, to be discussed further in team conference Abnormalities of gait and mobility (R26) Cognitive communication deficit (R41.841) Unspecified intracranial injury with loss of consciousness of unspecified duration, initial encounter (S06.9X9A) Muscle weakness (generalized) (M62.81) Neurogenic bowel, not elsewhere classified (K59.2) Neuromuscular dysfunction of bladder, unspecified (N31.9) Traumatic subdural hemorrhage (S06.5) Addendum by Rica Silveira MD on 09/19/2019 22:43 Sleep: plan to aggressively wean off seroquel as tolerated. Extracted from:Title: General Rehab Admission H&P * Author: Gene Coles Date: 09/19/19 Basic Information Visit type: New patient evaluation. Provider information/ cc: Referring: Candido March MD, Consulting: Renard Zapata MD. Accompanied by: No one. Source of history: med records. History limitation: Cognitive impairment. Chief Complaint Consulted for medical management of this 73 yo male s/p fall with resultant SDH- non sx. History of Present Illness 73-year-old male s/p fall approx 2 weeks ago. At time of fall, patient was evaluated at outside hospital in [place] where CT was done and revealed trace subdural hematoma with bilateral hygromas. Patient was observed and discharged home. Over the past week prior to admission, patient has experienced increased confusion, no urinar output, and poor oral intake, and stopped walking. EMS was called to patient's home. Patient presented to ED with increased AMS and lethargy. Patient was admitted to neuro ICU. No acute surgical intervention needed per NSGY. His repeat CT has been stable. Review of Systems Unable to obtain ROS: due to clinical condition. Health Status Allergies: Allergic Reactions (Selected) Severity Not Documented Codeine- No reactions were documented. Medications Current medications: (Selected) Inpatient Medications Ordered Dextrose 50% Syringe (D50W): 12.5 gm, 25 mL, IVP, PRN, PRN: Blood Glucose Results Dextrose 50% Syringe (D50W): 25 gm, 50 mL, IVP, PRN, PRN: Blood Glucose Results Milk of Magnesia: 30 ml, PO, Q24H, PRN: Constipation QUEtiapine: 25 mg, 1 tab, PO, Bedtime QUEtiapine: 50 mg, 2 tab, PO, Q12H, PRN: Agitation Saline Flush 0.9%: 10 mL, IVP, PRN, PRN: Line Flush bisacodyl: 10 mg, 1 supp, ND, Bedtime, PRN: Constipation docusate: 100 mg, 1 cap, PO, BID ergocalciferol 50,000 intl units oral capsule: 50,000 IntlUnit, 1 cap, PO, qWeek glucagon: 1 mg, IM, PRN, PRN: Blood Glucose Results heparin: 5,000 unit, 1 mL, SUB-Q, Q8H insulin glargine 100 units/mL subcutaneous solution: 18 unit, 0.18 mL, SUB-Q, Daily insulin lispro: 1 unit, 0.01 mL, SUB-Q, Bedtime, PRN: Blood Glucose Results insulin lispro: 1 unit, 0.01 mL, SUB-Q, TID-Before Meals, PRN: Blood Glucose Results insulin lispro: 10 unit, 0.1 mL, SUB-Q, TID-Before Meals insulin lispro: 2 unit, 0.02 mL, SUB-Q, Bedtime, PRN: Blood Glucose Results insulin lispro: 2 unit, 0.02 mL, SUB-Q, TID-Before Meals, PRN: Blood Glucose Results insulin lispro: 3 unit, 0.03 mL, SUB-Q, Bedtime, PRN: Blood Glucose Results insulin lispro: 3 unit, 0.03 mL, SUB-Q, TID-Before Meals, PRN: Blood Glucose Results insulin lispro: 4 unit, 0.04 mL, SUB-Q, Bedtime, PRN: Blood Glucose Results insulin lispro: 4 unit, 0.04 mL, SUB-Q, TID-Before Meals, PRN: Blood Glucose Results insulin lispro: 5 unit, 0.05 mL, SUB-Q, TID-Before Meals, PRN: Blood Glucose Results levETIRAcetam: 1,500 mg, IV, PRN, PRN: Seizure melatonin: 6 mg, 2 tab, PO, Bedtime metoprolol tartrate: 25 mg, 1 tab, PO, BID midazolam: 5 mg, 1 mL, IM, PRN, PRN: Seizure senna: 17.2 mg, 2 tab, PO, QNoon Documented Medications Suspended QUEtiapine 25 mg oral tablet: 25 mg, 1 tab, PO, Bedtime, 0 Refill(s) QUEtiapine 25 mg oral tablet: 50 mg, 2 tab, PO, Q12H, PRN: Agitation, 0 Refill(s) ergocalciferol 50,000 intl units oral capsule: 0 Refill(s) insulin glargine 100 units/mL subcutaneous solution: 18 unit, SUB-Q, Daily, 0 Refill(s) insulin lispro 100 units/mL injectable solution: 10 unit, SUB-Q, TID-Before Meals, 0 Refill(s) ketoconazole topical 2% cream: 0 Refill(s) melatonin 3 mg oral tablet: 6 mg, 2 tab, PO, Bedtime, 0 Refill(s) metoprolol tartrate 25 mg oral tablet: 25 mg, 1 tab, PO, BID, 0 Refill(s) senna 8.6 mg oral tablet: 8.6 mg, 1 tab, PO, Q12H, 0 Refill(s) tizanidine 4 mg oral tablet: 0 Refill(s). Problem list: All Problems Bilateral chronic intracranial subdural hematoma / SNOMED CT 636145844 / Confirmed Diabetes mellitus / SNOMED CT 680358301 / Confirmed Discomfort / SNOMED CT 484311920 / Confirmed HTN - Hypertension / SNOMED CT 8534583172 / Confirmed Minor surgery done / SNOMED CT 939599171 / Confirmed Nose bleed / SNOMED CT 30180156 / Confirmed Pain / SNOMED CT 70153727 / Confirmed SDH (subdural hematoma) / SNOMED CT 9208809972 / Confirmed Weakness / SNOMED CT 49905271 / Confirmed, Active Problems (9) Bilateral chronic intracranial subdural hematoma Diabetes mellitus Discomfort HTN - Hypertension Minor surgery done Nose bleed Pain SDH (subdural hematoma) Weakness Histories Past Medical History: No active or resolved past medical history items have been selected or recorded. Family History: No family history items have been selected or recorded. Procedure history: No active procedure history items have been selected or recorded. Social History Social and Psychosocial Habits Tobacco 09/15/2019 Use: Unknown if ever smoked Exposure to Tobacco Smoke None, Unable to obtain Cigarette Smoking Last 365 Days Unable to obtain Reg Smoking Cessation Counseling No 09/19/2019 Use: Never smoker Exposure to Tobacco Smoke None Cigarette Smoking Last 365 Days No Reg Smoking Cessation Counseling Yes . Physical Examination VS/Measurements Vital Signs (last 24 hrs) Last Charted Heart Rate Peripheral 96 bpm (SEP 18:) Resp Rate 18 BRMIN (SEP 18:) SBP H 143mmHg (SEP 18:) Weight 83.636 kg (SEP 18:) Height 170.18 cm (SEP 18:) BMI 28.88 (SEP 18:) General: No acute distress, Well developed, Well nourished. Eye: Normal conjunctiva. HENT: Normocephalic, Oral mucosa is moist. Neck: Supple. Respiratory: Lungs are clear to auscultation, Respirations are non-labored, Breath sounds are equal, Symmetrical chest wall expansion, anterior exam. Cardiovascular: Normal rate, Regular rhythm, No edema. Gastrointestinal: Soft, Non-tender, Non-distended, Normal bowel sounds. Mental status/ Cognition Alert. Psychiatric: Cooperative. Review / Management Results review: No qualifying data available . Impression and Plan HTN- cont Metoprolol, add Lisinopril 2.5 mg HS DM2 A1c 9.0. cont Lantus 18 units daily and Lispro 10 units TID w meals, add Lisinopril (monitor renal fxn), add statin if possible SDH- PT/OT/SECURITY OPERATIONS SPECIALIST Tachycardia- Metoprolol Vit D Def- cont ergocalciferol, check level Macrocytic Anemia- mild, weekly and prn labs 7-30 AMS- Seroquel HS per PMR 7-30 Muscle Spasms- Tizanidine per PMR Hiatal Hernia- small Addendum by Renard Zapata MD on 09/20/2019 12:41 Pt seen and examined. Agree with the physical exam and plan documented by the MANAGER OF INTERNAL AUDIT. 10/08/2019 [facility] Plan of Care No Data Provided for This Section Social History Social History Date Source Social History TypeResponse Smoking Status Never smoker; Exposure to Tobacco Smoke None; Cigarette Smoking Last 365 Days No; Reg Smoking Cessation Counseling Yes entered on: 09/19/19 09/19/2019 [facility] Social History TypeResponse Smoking Status Unknown if ever smoked; Exposure to Tobacco Smoke None; Exposure to Tobacco Smoke Unable to obtain; Cigarette Smoking Last 365 Days Unable to obtain; Reg Smoking Cessation Counseling No entered on: 09/15/19 09/15/2019 [facility] No data available for this section 07/25/2014 [facility] [place] Family History No Data Provided for This Section Advance Directives No Data Provided for This Section Functional Status No Data Provided for This Section
[2019-10-21 16:03] LABS: ALBUMIN/GLOBULIN RATIO 0.6 (0.8-2.0); ANION GAP 20.9 mmol/L (8-16); CALCIUM 9.4 mg/dL (8.4-10.2); CREATININE, SERUM 1.22 mg/dL (0.72-1.25); POTASSIUM 3.9 mmol/L (3.5-5.1)
[2019-10-21 16:12] LABS: CREATINE KINASE MB 1.8 ng/mL (0-5.0)
--- NOTE | 2019-10-21 16:27 | Diagnostic Imaging Report ---
TECHNIQUE: Frontal view of the chest. INDICATION: ^AMS ^[id number] ^[id number] COMPARISON: 08/28/2019 DISCUSSION: Limited evaluation due to portable technique. Lines and hardware: Overlying EKG leads are noted Heart and mediastinum: Stable. Lungs and pleura: No focal airspace consolidation. No pleural effusion. No pneumothorax. Soft tissues and bones: No acute abnormality. IMPRESSION: Negative for acute intrathoracic process. Signed by: Derek Benson MD on 10/21/2019 4:24 PM
--- NOTE | 2019-10-21 16:46 | Diagnostic Imaging Report ---
EXAMINATION: Head CT HISTORY: Altered mental status, dementia, hypertension, diabetes, hyperlipidemia COMPARISON: Head CT 09/14/2019 TECHNIQUE: Helical axial images of the head were obtained. Reformatted coronal and sagittal images from the axial data. Dose modulation, iterative reconstruction, and/or weight based adjustment of the mA/kV was utilized to reduce the radiation dose to as low as reasonably achievable. Image quality: Artifact from patient motion severely limits evaluation of the study in spite of multiple. FINDINGS: Parenchyma: 1. Persistent mild white matter chronic microvascular ischemic changes. 2. No mass or hemorrhage. No CT evidence of acute territorial vascular insult. Extra-axial spaces:There is a new approximately 1.3 cm almost isodense to the brain parenchyma left superior frontoparietal convexity subacute subdural hematoma with minimal local mass effect, no midline shift or herniation. Smaller previously seen subdural hygroma in the right convexity, likely related to mass effect from left-sided subdural. Interval resolution of previously seen tiny subdural hematoma along the right tentorium on head CT from 09/14/2019 Brain volume: Normal for age. Ventricles: No hydrocephalus or displacement. Arteries: No density suggestive of thrombus. Dural sinuses: No abnormal density. Foramen magnum: No mass, Chiari malformation, or basilar invagination. Sella: No obvious mass. Paranasal/mastoid sinuses: Imaged portions unremarkable. Skull/Scalp: No lytic or blastic lesions. No fractures. IMPRESSION: Suboptimal study due to motion artifact, in spite of this limitation findings are as follows: 1. New 1.3 cm left frontoparietal subacute subdural hematoma since head CT of 09/14/2019, mild local mass effect, no midline shift or herniation. 2. Stable mild chronic microvascular ischemic changes. The findings were discussed with the ER physician Dr. Feliz on 10/21/2019 at 4:30 PM Signed by: Dr. [place] M.D. on 10/21/2019 4:43 PM
[2019-10-21] MEDS ORDERED: CEFTRIAXONE SOD 1 GM/NS 50 ML 50 ML IV ONE (17:15)
[2019-10-21] MEDS ORDERED: SODIUM CHLORIDE 0.9% 1000ML 1,000 ML IV STA (17:17)
--- NOTE | 2019-10-21 17:42 | NUR ---
CALLED FOR TRANSPORT FOR [facility]
--- NOTE | 2019-10-21 17:48 | Emergency Department Note ---
History of Present Illnes History of Present Illness Chief Complaint: General Medicine Complaints History of Present Illness This is a 73 year old male ONSET YESTERDAY INCREASED AMS. BASELINE CONFUSED D/T DEMENTIA. PT FROM HOME. REPORT FROM EMS. PT GCS 13. WAKES EASILY, TALKS, UNDERSTANDABLE SPEECH PATTERN. FOLLOWS SOME COMMANDS. CONFUSED. BS 263. 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 Any updates have been documented here. Past Medical History Recent Fever: No Clinical Suspicion of Infectio: No New/Unexplained Change in Ment: No Past Medical History: Hypertension, Diabetes, Hyperlipedemia Other Medical History: dementia Past Surgical History: None Social History Smoking Cessation: Unknown if ever smoked Counseling Performed: No Alcohol Use: None Any Illegal Drug Use: No Other Any Pre-Existing Lines (PICC,: No Review of Systems Review of Systems Constitutional: Reports no symptoms EENTM: Reports no symptoms Cardiovascular: Reports no symptoms Respiratory: Reports no symptoms Gastrointestinal: Reports no symptoms Genitourinary: Reports no symptoms Musculoskeletal: Reports no symptoms Integumentary: Reports no symptoms Neurological: Reports as per HPI Psychological: Reports no symptoms Endocrine: Reports no symptoms Hematological/Lymphatic: Reports no symptoms Physical Exam Related Data Allergies: Coded Allergies: No Known Allergies (Unverified , 08/28/19) Triage Vital Signs Vital Signs Date Time Temp Pulse Resp B/P (MAP) Pulse Ox O2 Delivery O2 Flow Rate FiO2 10/21/19 15:00 99.4 99 24 150/82 98 Room Air Vital signs reviewed: Yes Physical Exam CONSTITUTIONAL Constitutional: Present well-developed, Present well-nourished HENT HENT: Present normocephalic, Present atraumatic, Present oropharynx clear/moist, Present nose normal HENT L/R: Present left ext ear normal, Present right ext ear normal EYES Eyes: Reports PERRL, Reports conjunctivae normal NECK Neck: Present ROM normal PULMONARY Pulmonary: Present effort normal, Present breath sounds normal CARDIOVASCULAR Cardiovascular: Present regular rhythm, Present heart sounds normal, Present capillary refill normal, Present normal rate GASTROINTESTINAL Abdominal: Present soft, Present nontender, Present bowel sounds normal GENITOURINARY Genitourinary: Present exam deferred SKIN Skin: Present warm, Present dry MUSCULOSKELETAL Musculoskeletal: Present ROM normal NEUROLOGICAL Neurological: Present alert, Present no gross motor or sensory deficits (BROOKS'S, FOLLOWS SIMPLE COMMANDS), Present other (ORIENTED TO NAME ONLY); Absent cranial nerve deficit PSYCHOLOGICAL Psychological: Present mood/affect normal, Present judgement normal Results Laboratory Result Diagram: 10/21/19 1507 10/21/19 1507 Laboratory Laboratory Tests Test 10/21/19 15:07 White Blood Count 17.49 x10e3/uL (4.8-10.8) Red Blood Count 4.21 x10e6/uL (4.3-5.7) Hemoglobin 12.9 g/dL (14.0-18.0) Hematocrit 39.0 % (38.2-49.6) Mean Corpuscular Volume 92.6 fL (81-99) Mean Corpuscular Hemoglobin 30.6 pg (28-32) Mean Corpuscular Hemoglobin Concent 33.1 g/dL (31-35) Red Cell Distribution Width 13.9 % (11.7-14.4) Platelet Count 275 x10e3/uL (140-360) Neutrophils (%) (Auto) 85.4 % (38.7-80.0) Lymphocytes (%) (Auto) 5.8 % (18.0-39.1) Monocytes (%) (Auto) 7.3 % (4.4-11.3) Eosinophils (%) (Auto) 0.2 % (0.0-6.0) Basophils (%) (Auto) 0.3 % (0.0-1.0) Neutrophils # (Auto) 15.0 (2.1-6.9) Lymphocytes # (Auto) 1.0 (1.0-3.2) Monocytes # (Auto) 1.3 (0.2-0.8) Eosinophils # (Auto) 0.0 (0.0-0.4) Basophils # (Auto) 0.1 (0.0-0.1) Absolute Immature Granulocyte (auto 0.17 x10e3/uL (0-0.1) Prothrombin Time 14.0 seconds (11.9-14.5) Prothromb Time International Ratio 1.03 Activated Partial Thromboplast Time 43.9 seconds (23.8-35.5) Urine Color Yellow (YELLOW) Urine Clarity Sl cloudy (CLEAR) Urine pH 5.5 (5 - 7) Urine Specific [place] 1.020 (1.010-1.025) Urine Protein Negative (NEGATIVE) Urine Glucose (UA) 2+ (NEGATIVE) Urine Ketones 2+ (NEGATIVE) Urine Blood Small (NEGATIVE) Urine Nitrite Negative (NEGATIVE) Urine Bilirubin Negative (NEGATIVE) Urine Urobilinogen 0.2 mg/dL (0.2 - 1) Urine Leukocyte Esterase Negative (NEGATIVE) Urine RBC 0-5 /HPF (0-5) Urine WBC None /HPF (0-5) Urine Epithelial Cells None /LPF (NONE) Urine Amorphous Sediment Moderate (FEW) Urine Bacteria Few /HPF (NONE) Sodium Level 139 mmol/L (136-145) Potassium Level 3.9 mmol/L (3.5-5.1) Chloride Level 101 mmol/L (98-107) Carbon Dioxide Level 21 mmol/L (22-29) Anion Gap 20.9 mmol/L (8-16) Blood Urea Nitrogen 17 mg/dL (7-26) Creatinine 1.22 mg/dL (0.72-1.25) Estimat Glomerular Filtration Rate 58 ML/MIN (60-) BUN/Creatinine Ratio 14 (6-25) Glucose Level 281 mg/dL (74-118) Lactic Acid Level 3.3 mmol/L (0.5-2.0) Calcium Level 9.4 mg/dL (8.4-10.2) Magnesium Level 1.4 MG/DL (1.3-2.1) Total Bilirubin 0.9 mg/dL (0.2-1.2) Aspartate Amino Transf (AST/SGOT) 18 IU/L (5-34) Alanine Aminotransferase (ALT/SGPT) 36 IU/L (0-55) Alkaline Phosphatase 80 IU/L (40-150) Creatine Kinase 186 IU/L (30-200) Creatine Kinase MB 1.80 ng/mL (0-5.0) Troponin I 0.045 ng/mL (0-0.300) B-Type Natriuretic Peptide 139.7 pg/mL (0-100) Total Protein 7.7 g/dL (6.5-8.1) Albumin 3.0 g/dL (3.5-5.0) Globulin 4.7 g/dL (2.3-3.5) Albumin/Globulin Ratio 0.6 (0.8-2.0) Lab results reviewed: Yes Imaging Imaging results reviewed: Yes Procedures 12 Lead ECG Interpretation ECG Interpretation : ECG: ECG 1 Receptionist Doctor'S Office: Interpreted by ED physician Date: Oct 21, 2019 Time: 15:00 Rhythm: sinus rhythm (LAE) Rate: normal (99) QRS axis: normal ST segments normal: Yes T waves normal: Yes Clinical Impression: abnormal ECG Additional Comments PROLONGED QT Critical Care Time Total Critical Care Time (min): 45 Critcal care necessary due to: SOCIAL SERVICE DIRECTOR failure or compromise Critcal care time spent by me: discussion w consultants, evaluation patient response to tx, order/perform tx or interventions, order/review laboratory studies, order/review radiographic studies, re-evaluation of patient condition Assessment & Plan Medical Decision Making MDM AMS, H/O DEMENTIA - CBC, CHEM, LACTIC, CX'S, cxr, ct brain, ECG, CARDIACS, NH3, UA/CX - EVAL CEREBRAL BLEED, UTI, PNEUMONIA, SEPSIS, ELECTROLYTE ABNL, ENCEPHALOPATHY, STEMI/NSTEMI, RENAL INSUFF Reassessment Reassessment CT WITH SUBACUTE SDH - INITIATED TRANSFER, SPOKE WITH DR SALAS AT [facility], ACCEPTS FOR TRANSFER Assessment & Plan Final Impression: (1) SDH (subdural hematoma) (2) Altered mental status Depart Disposition: TRANS TO OTHER [facility] Last Vital Signs Date Time Temp Pulse Resp B/P (MAP) Pulse Ox O2 Delivery O2 Flow Rate FiO2 10/21/19 15:27 98 22 150/82 98 Room Air 10/21/19 15:00 99.4 Medications in the ED Ceftriaxone Sodium 50 ml @ 100 mls/hr ONCE ONCE IV ; Start 10/21/19 at 17:15; Stop 10/21/19 at 17:44 Sodium Chloride 1,000 ml @ 0 mls/hr Q0M STAT IV ; Start 10/21/19 at 17:17; Stop 10/21/19 at 17:18; Status DC ROCHELLE ADHIKARI MD Oct 21, 2019 17:48
--- NOTE | 2019-10-21 18:06 | NUR ---
REPORT TO MISTY ANTHONY IN [facility]
--- NOTE | 2019-10-21 18:17 | NUR ---
REPORT TO EMS. [facility] WAITING ON DISC. CALLED ON SPEAKER WITH HOU[facility]P WITNESS 2 RN APPROVAL TO SEND PT
== END 2019-10-21 18:45 | disposition other institution (70) ==
LOC: ER 15:05
DX: I62.00 Nontraumatic subdural hemorrhage, unspecified (principal); R41.82 Altered mental status, unspecified; E11.65 Type 2 diabetes mellitus with hyperglycemia; F03.90 Unspecified dementia, unspecified severity, without behavioral disturbance, psychotic disturbance, mood disturbance, and anxiety; R94.31 Abnormal electrocardiogram [ECG] [EKG]; I10 Essential (primary) hypertension; E78.5 Hyperlipidemia, unspecified; Z11.59 Encounter for screening for other viral diseases
CPT/HCPCS: 36415; 51700; 70450; 71045; 80053; 81001; 82550; 82553; 83605; 83735; 83880; 84484; 85025; 85610; 85730; 87040; 93005; 99285; U0002

== ENCOUNTER 2021-07-02 20:36 | Emergency (ER) | payer BC, MEDICARE ==
[~2021-07-02] VITALS: Ht 177.8 cm; Wt 90.7 kg
[2021-07-02] MEDS ORDERED: SODIUM CHLORIDE 0.9% 1000ML 1,000 ML IV STA (21:08)
[2021-07-02 21:21] LABS: BASOPHILS % 0.6 % (0.0-1.0); EOSINOPHILS # (AUTO) 0.1 (0.0-0.4); EOSINOPHILS % 2.5 % (0.0-6.0); HEMATOCRIT 38.9 % (38.2-49.6); HEMOGLOBIN 12.8 g/dL (14.0-18.0); LYMPHOCYTES % 19.8 % (18.0-39.1); MEAN CORPUSCULAR HEMOGLOBIN 29.8 pg (28-32); MEAN CORPUSCULAR HGB CONC 32.9 g/dL (31-35); MEAN CORPUSCULAR VOLUME 90.7 fL (81-99); MONOCYTES # (AUTO) 0.5 (0.2-0.8); MONOCYTES % 9.7 % (4.4-11.3); NEUTROPHILS # (AUTO) 3.4 (2.1-6.9); NEUTROPHILS % 66.8 % (38.7-80.0); PLATELET COUNT 267 x10e3/uL (140-360); RED BLOOD COUNT 4.29 x10e6/uL (4.3-5.7); RED CELL DISTRIBUTION WIDTH 14.8 % (11.7-14.4)
[2021-07-02 21:47] LABS: ALBUMIN 3.1 g/dL (3.5-5.0); ALBUMIN/GLOBULIN RATIO 0.8 (0.8-2.0); ANION GAP 19.9 mmol/L (8-16); CALCIUM 9.4 mg/dL (8.4-10.2); CREATININE, SERUM 1.78 mg/dL (0.72-1.25); POTASSIUM 4.9 mmol/L (3.5-5.1)
[2021-07-02 23:08] LABS: CLARITY,URINE SL CLOUDY (CLEAR); COLOR,URINE YELLOW (YELLOW); KETONES,URINE 1+ (NEGATIVE); NITRITE,URINE NEGATIVE (NEGATIVE); PROTEIN,URINE DIPSTICK 2+ (NEGATIVE)
[2021-07-02 23:09] LABS: URINE UROBILINOGEN 0.2 mg/dL (0.2 - 1)
[2021-07-02 23:11] LABS: LEUKOCYTE ESTERASE ,URINE SMALL (NEGATIVE)
[2021-07-02 23:14] LABS: AMORPHOUS SEDIMENT,URINE FEW (FEW); BACTERIA,URINE FEW /HPF; EPITHELIAL CELLS,URINE MODERATE /LPF; RBC,URINE 0-5 /HPF (0-5)
[2021-07-03] MEDS ORDERED: SODIUM CHLORIDE 0.9% 1000ML 1,000 ML IV SCH
[2021-07-03] MEDS ORDERED: SODIUM CHLORIDE 0.9% 1000ML 1,000 ML IV ONE (00:15)
[2021-07-03 00:48] VITALS: BP 143/66
== END 2021-07-03 00:59 | disposition home or self-care (01) ==
LOC: ER 20:40
DX: R53.1 Weakness (principal); E86.0 Dehydration; I12.9 Hypertensive chronic kidney disease with stage 1 through stage 4 chronic kidney disease, or unspecified chronic kidney disease; E11.22 Type 2 diabetes mellitus with diabetic chronic kidney disease; N18.9 Chronic kidney disease, unspecified; F03.90 Unspecified dementia, unspecified severity, without behavioral disturbance, psychotic disturbance, mood disturbance, and anxiety; E78.5 Hyperlipidemia, unspecified
CPT/HCPCS: 36415; 71045; 80053; 81001; 83690; 84484; 85025; 99284; J7030 ×2